=== PATIENT | female | born 1960 | race Caucasian/White ===

== ENCOUNTER 2017-07-24 06:48 | Emergency (ER) | payer OTHER, SELFPAY ==
[2017-07-24 08:00] LABS: #Eosinphils 0.1 thou/uL (0.0-0.7); #Lymphocytes 2.5 thou/uL (1.20-3.40); #Monocytes 0.5 thou/uL (0.11-0.59); #Neutrophils 2.6 thou/uL (1.40-6.50); %Basophils 0.6 % (0.0-1.0); %Eosinophils 1.2 % (0.0-10.0); %Lymphocytes 43.8 % (21.0-51.0); %Monocytes 8.7 % (0.0-10.0); Hematocrit 39.3 % (36.0-47.0); Mean Platelet Volume 7.8 fL (7.4-10.4); Red Blood Cell (RBC) Count 4.22 mill/uL (4.20-5.40); White Blood Cell (WBC) Count 5.7 thou/uL (4.8-10.8)
--- NOTE | 2017-07-24 08:00 | RAD ---
1 VIEW CHEST: Date: 07/24/17 COMPARISON: 05/20/16. HISTORY: Chest pain. FINDINGS: Normal cardiac silhouette. Pulmonary vessels and hilum are normal. Costophrenic angles are clear. No masses or consolidation. No pneumothorax or osseous abnormalities. IMPRESSION: No acute cardiopulmonary process. POS: [facility]
[2017-07-24 08:08] LABS: Prothrombin Time 13.3 SEC (12.0-14.7)
[2017-07-24 08:23] LABS: ALT (SGPT) 24 U/L (8-55); AST (SGOT) 17 U/L (5-34); Alkaline Phosphatase 78 U/L (40-150); Anion Gap 14 mmol/L (10-20); BUN (Urea Nitrogen) 12 mg/dL (9.8-20.1); Bilirubin, Total 0.3 mg/dL (0.2-1.2); Calc. Creatinine Clearance 0 mL/min (70-130); Calcium 9.3 mg/dL (7.8-10.44); Carbon Dioxide 22 mmol/L (22-29); Chloride 109 mmol/L (98-107); Estimated GFR-MDRD 73; Globulin 3.1 g/dL (2.4-3.5); Lipase 13 U/L (8-78); Magnesium 2.6 mg/dL (1.6-2.6); Protein, Total 7.3 g/dL (6.0-8.3)
[2017-07-24 08:26] LABS: Troponin I Less than 0.010 ng/mL (< 0.028)
[2017-07-24 09:39] LABS: Bilirubin Negative (Negative); Blood, Urine Negative (Negative); Glucose, Urine (Dipstick) Negative (Negative); Ketone, Urine Negative (Negative); Nitrite Negative (Negative); Protein, Urine (Dipstick) Negative (Neg-Trace)
[2017-07-24 09:40] LABS: Bacteria/HPF None Seen HPF (None Seen); Hyaline Casts/LPF 0-3 HYALINE CAST LPF (0-3 Hyaline); RBC/HPF 0-3 HPF (0-3); Squamous Epithelial 0-3 HPF (0-3)
[2017-07-24] MEDS ORDERED: Ketorolac Tromethamine 30 MG/ML VIAL ONE (10:09)
[2017-07-24] MEDS ORDERED: Ondansetron HCl/PF 4 MG/2 ML Vial ONE (10:09)
== END 2017-07-24 10:18 | disposition home or self-care (01) ==
LOC: ERS 06:48
DX: N39.0 Urinary tract infection, site not specified (principal); G43.909 Migraine, unspecified, not intractable, without status migrainosus; F41.9 Anxiety disorder, unspecified; F32.9 Major depressive disorder, single episode, unspecified
CPT/HCPCS: 71010; 80053; 81003; 81015; 82553; 83690; 83735; 84484; 85025; 85379; 85610; 93005; 96361; 96374; 96375; J1885; J2405

== ENCOUNTER 2017-10-06 21:08 | Emergency (ER) | payer SELFPAY ==
[2017-10-06 22:27] LABS: #Basophils 0.1 thou/uL (0.0-0.2); #Eosinphils 0.1 thou/uL (0.0-0.7); #Lymphocytes 2.2 thou/uL (1.20-3.40); #Monocytes 0.3 thou/uL (0.11-0.59); #Neutrophils 2.9 thou/uL (1.40-6.50); %Basophils 0.9 % (0.0-1.0); %Eosinophils 1.5 % (0.0-10.0); %Lymphocytes 39.7 % (21.0-51.0); %Monocytes 6.2 % (0.0-10.0); %Neutrophils 51.8 % (42.0-75.0); Hemoglobin 11.7 g/dL (12.0-16.0); Mean Corpuscular HGB CONC 34.5 g/dL (32.0-36.0); Mean Corpuscular Hemoglobin 32.5 pg (27.0-31.0); Mean Corpuscular Volume 94.3 fl (81.0-99.0); Mean Platelet Volume 8.6 fL (7.4-10.4); Platelet Count 168 thou/uL (130-400); RBC Distribution Width 11.6 % (11.5-14.5); Red Blood Cell (RBC) Count 3.59 mill/uL (4.20-5.40); White Blood Cell (WBC) Count 5.5 thou/uL (4.8-10.8)
[2017-10-06 22:49] LABS: ALT (SGPT) 13 U/L (8-55); AST (SGOT) 22 U/L (5-34); Albumin 3.9 g/dL (3.5-5.0); Alcohol Less than 10 mg/dL (Less than 10); Alkaline Phosphatase 66 U/L (40-150); Anion Gap 12 mmol/L (10-20); BUN (Urea Nitrogen) 13 mg/dL (9.8-20.1); Bilirubin, Total 0.3 mg/dL (0.2-1.2); CK (CPK) 414 U/L (29-168); Calc. Creatinine Clearance 0 mL/min (70-130); Calcium 10.1 mg/dL (7.8-10.44); Carbon Dioxide 23 mmol/L (22-29); Chloride 107 mmol/L (98-107); Estimated GFR-MDRD 62; Globulin 2.5 g/dL (2.4-3.5); Glucose 77 mg/dL (70-105); Potassium 4.2 mmol/L (3.5-5.1); Protein, Total 6.4 g/dL (6.0-8.3); Sodium 138 mmol/L (136-145)
[2017-10-06 23:13] LABS: Bilirubin Negative (Negative); Blood, Urine Negative (Negative); Clarity CLEAR (Clear); Glucose, Urine (Dipstick) Negative (Negative); Leukocyte Negative (Negative); Nitrite Negative (Negative); Protein, Urine (Dipstick) Negative (Neg-Trace); Specific Gravity, Urine 1.013 (1.002-1.036); Urobilinogen 0.2 mg/dL (0.2-1.0)
[2017-10-06 23:22] LABS: Amphetamine Not Detected (NotDetected); Cocaine Metabolite Screen Not Detected (NotDetected); Medtox Reader # READER 4; Methamphetamine Not Detected (NotDetected); Opiate Screen Not Detected (NotDetected); Phencyclidine (PCP) Not Detected (NotDetected); THC/Cannabinoid Screen Not Detected (NotDetected)
[2017-10-06 23:23] LABS: Barbiturates Screen Not Detected (NotDetected); Benzodiazepine Screen Detected (NotDetected); Medtox Control Line Valid? VALID (VALID); Methadone Not Detected (NotDetected); Oxycodone Screen Not Detected (NotDetected); Tricyclic Screen Not Detected (NotDetected)
[2017-10-07] MEDS ORDERED: Topiramate 25 MG TAB PO SCH ×2 (00:01→21:00)
[2017-10-07] MEDS ORDERED: Divalproex Sodium 250 MG (DR) TAB PO SCH ×2 (00:01→06:00)
[2017-10-07] MEDS ORDERED: Ketorolac Tromethamine 60 MG/2 ML VIAL ONE (00:51)
== END 2017-10-07 01:39 | disposition home or self-care (01) ==
LOC: ERS 21:08
DX: R45.1 Restlessness and agitation (principal); R51 Headache; F41.9 Anxiety disorder, unspecified; F31.9 Bipolar disorder, unspecified; Z79.899 Other long term (current) drug therapy
CPT/HCPCS: 36415; 80053; 80164; 80306; 80307; 81003; 82550; 84443; 85025; 96372; J1885

== ENCOUNTER 2017-11-12 01:39 | Emergency (ER) | payer SELFPAY ==
[2017-11-12 05:49] LABS: #Basophils 0.1 thou/uL (0.0-0.2); #Eosinphils 0.1 thou/uL (0.0-0.7); #Lymphocytes 2.7 thou/uL (1.20-3.40); #Monocytes 0.4 thou/uL (0.11-0.59); #Neutrophils 3.4 thou/uL (1.40-6.50); %Basophils 1.2 % (0.0-1.0); %Eosinophils 1.3 % (0.0-10.0); %Lymphocytes 40.1 % (21.0-51.0); %Monocytes 6.2 % (0.0-10.0); %Neutrophils 51.2 % (42.0-75.0); Mean Corpuscular HGB CONC 34.3 g/dL (32.0-36.0); Mean Corpuscular Hemoglobin 31.9 pg (27.0-31.0); Mean Corpuscular Volume 93.1 fl (81.0-99.0); Mean Platelet Volume 8.2 fL (7.4-10.4); Platelet Count 253 thou/uL (130-400); RBC Distribution Width 11.8 % (11.5-14.5); Red Blood Cell (RBC) Count 4.39 mill/uL (4.20-5.40); White Blood Cell (WBC) Count 6.7 thou/uL (4.8-10.8)
[2017-11-12 06:12] LABS: ALT (SGPT) 17 U/L (8-55); AST (SGOT) 17 U/L (5-34); Albumin 4.7 g/dL (3.5-5.0); Alkaline Phosphatase 92 U/L (40-150); Anion Gap 12 mmol/L (10-20); BUN (Urea Nitrogen) 14 mg/dL (9.8-20.1); Bilirubin, Total 0.3 mg/dL (0.2-1.2); CK (CPK) 60 U/L (29-168); Calc. Creatinine Clearance 0 mL/min (70-130); Calcium 9.8 mg/dL (7.8-10.44); Carbon Dioxide 24 mmol/L (22-29); Chloride 104 mmol/L (98-107); Estimated GFR-MDRD 66; Globulin 3.2 g/dL (2.4-3.5); Glucose 88 mg/dL (70-105); Potassium 3.5 mmol/L (3.5-5.1); Protein, Total 7.9 g/dL (6.0-8.3); Sodium 136 mmol/L (136-145)
[2017-11-12] MEDS ORDERED: Diazepam 5 MG TAB ONE (07:47)
== END 2017-11-12 08:10 | disposition home or self-care (01) ==
LOC: ERS 01:39
DX: R20.2 Paresthesia of skin (principal); G43.909 Migraine, unspecified, not intractable, without status migrainosus; F41.9 Anxiety disorder, unspecified; F31.9 Bipolar disorder, unspecified; F60.3 Borderline personality disorder; Z79.899 Other long term (current) drug therapy
CPT/HCPCS: 36415; 80053; 82550; 85025; 99284

== ENCOUNTER 2017-11-21 19:41 | Emergency (ER) | payer SELFPAY ==
[2017-11-21 20:21] LABS: #Lymphocytes 1.9 thou/uL (1.20-3.40); #Monocytes 0.6 thou/uL (0.11-0.59); #Neutrophils 3.9 thou/uL (1.40-6.50); %Basophils 0.7 % (0.0-1.0); %Eosinophils 0.7 % (0.0-10.0); %Lymphocytes 29.1 % (21.0-51.0); %Monocytes 9.5 % (0.0-10.0); Hemoglobin 14.4 g/dL (12.0-16.0); Mean Corpuscular HGB CONC 33.6 g/dL (32.0-36.0); Mean Corpuscular Hemoglobin 31.3 pg (27.0-31.0); Mean Corpuscular Volume 93.1 fl (81.0-99.0); Mean Platelet Volume 8.3 fL (7.4-10.4); Platelet Count 241 thou/uL (130-400); RBC Distribution Width 11.5 % (11.5-14.5); White Blood Cell (WBC) Count 6.6 thou/uL (4.8-10.8)
[2017-11-21 20:25] LABS: Bilirubin Moderate (Negative); Blood, Urine Negative (Negative); Glucose, Urine (Dipstick) Negative (Negative); Leukocyte Negative (Negative); Nitrite Negative (Negative); Protein, Urine (Dipstick) 100 mg/dL (Neg-Trace); Urobilinogen 0.2 mg/dL (0.2-1.0)
[2017-11-21 20:27] LABS: Clarity Clear (Clear); Specific Gravity, Urine 1.027 (1.002-1.036)
[2017-11-21 20:28] LABS: Other Microscopic Description Less than 2 mL rec'd
[2017-11-21 20:29] LABS: Bacteria/HPF None Seen HPF (None Seen); RBC/HPF 0-3 HPF (0-3); Squamous Epithelial 0-3 HPF (0-3); WBC/HPF 0-3 HPF (0-3)
[2017-11-21 20:30] LABS: Hyaline Casts/LPF NONE SEEN LPF (0-3 Hyaline)
[2017-11-21 20:39] LABS: Amphetamine Not Detected (NotDetected); Barbiturates Screen Not Detected (NotDetected); Benzodiazepine Screen Detected (NotDetected); Cocaine Metabolite Screen Not Detected (NotDetected); Medtox Control Line Valid? VALID (VALID); Medtox Reader # READER 4; Methadone Not Detected (NotDetected); Methamphetamine Detected (NotDetected); Opiate Screen Not Detected (NotDetected); Oxycodone Screen Not Detected (NotDetected); Phencyclidine (PCP) Not Detected (NotDetected); THC/Cannabinoid Screen Not Detected (NotDetected); Tricyclic Screen Detected (NotDetected)
[2017-11-21 20:44] LABS: ALT (SGPT) 26 U/L (8-55); AST (SGOT) 21 U/L (5-34); Acetaminophen Less than 6.0 mcg/mL (10.0-30.0); Albumin 4.6 g/dL (3.5-5.0); Alcohol Less than 10 mg/dL (Less than 10); Alkaline Phosphatase 83 U/L (40-150); Anion Gap 14 mmol/L (10-20); BUN (Urea Nitrogen) 11 mg/dL (9.8-20.1); Bilirubin, Total 0.3 mg/dL (0.2-1.2); Calc. Creatinine Clearance 0 mL/min (70-130); Calcium 9.7 mg/dL (7.8-10.44); Carbon Dioxide 17 mmol/L (22-29); Chloride 113 mmol/L (98-107); Estimated GFR-MDRD 72; Potassium 3.2 mmol/L (3.5-5.1); Protein, Total 7.6 g/dL (6.0-8.3); Salicylate Less than 8.0 mg/dL (15.0-30.0); Sodium 141 mmol/L (136-145)
[2017-11-21 20:47] LABS: Glucose 56 mg/dL (70-105)
[2017-11-21] MEDS ORDERED: Ondansetron HCl/PF 4 MG/2 ML Vial ONE (21:51)
[2017-11-21] MEDS ORDERED: Lorazepam 2 MG/ML VIAL ONE (22:14)
[2017-11-22] MEDS ORDERED: Topiramate 25 MG TAB PO SCH ×2 (02:00→07:45)
[2017-11-22] MEDS ORDERED: Divalproex Sodium 250 MG (DR) TAB PO SCH (02:00)
== END 2017-11-22 09:44 ==
LOC: ERS 19:41
DX: R45.851 Suicidal ideations (principal); F32.9 Major depressive disorder, single episode, unspecified; E16.2 Hypoglycemia, unspecified; G43.909 Migraine, unspecified, not intractable, without status migrainosus; F41.9 Anxiety disorder, unspecified; F43.10 Post-traumatic stress disorder, unspecified; Z79.899 Other long term (current) drug therapy
CPT/HCPCS: 36415; 36416; 80053; 80306; 80307; 81003; 81015; 82550; 84439; 84443; 85025; 96361; 96374; 96375; J2060; J2405

== ENCOUNTER 2017-12-23 16:40 | Emergency (ER) | payer SELFPAY ==
[2017-12-23 17:25] LABS: #Eosinphils 0.1 thou/uL (0.0-0.7); #Lymphocytes 1.8 thou/uL (1.20-3.40); #Monocytes 0.3 thou/uL (0.11-0.59); #Neutrophils 2.4 thou/uL (1.40-6.50); %Eosinophils 1.3 % (0.0-10.0); %Lymphocytes 38.7 % (21.0-51.0); %Monocytes 5.7 % (0.0-10.0); %Neutrophils 53.4 % (42.0-75.0); Hemoglobin 12.8 g/dL (12.0-16.0); Mean Corpuscular HGB CONC 34.1 g/dL (32.0-36.0); Mean Corpuscular Hemoglobin 31.4 pg (27.0-31.0); Mean Corpuscular Volume 92.1 fl (81.0-99.0); Mean Platelet Volume 7.4 fL (7.4-10.4); Platelet Count 237 thou/uL (130-400); RBC Distribution Width 11.3 % (11.5-14.5); Red Blood Cell (RBC) Count 4.08 mill/uL (4.20-5.40); White Blood Cell (WBC) Count 4.5 thou/uL (4.8-10.8)
[2017-12-23] MEDS ORDERED: Ibuprofen 200 MG TAB ONE (17:47)
[2017-12-23 17:48] LABS: Acetaminophen Less than 6.0 mcg/mL (10.0-30.0); Alcohol Less than 10 mg/dL (Less than 10); Salicylate Less than 8.0 mg/dL (15.0-30.0)
[2017-12-23 17:49] LABS: ALT (SGPT) 21 U/L (8-55); AST (SGOT) 19 U/L (5-34); Albumin 4.1 g/dL (3.5-5.0); Alcohol Less than 10 mg/dL (Less than 10); Alkaline Phosphatase 87 U/L (40-150); Anion Gap 10 mmol/L (10-20); BUN (Urea Nitrogen) 11 mg/dL (9.8-20.1); Bilirubin, Total 0.2 mg/dL (0.2-1.2); CK (CPK) 50 U/L (29-168); Calc. Creatinine Clearance 0 mL/min (70-130); Calcium 9.5 mg/dL (7.8-10.44); Carbon Dioxide 21 mmol/L (22-29); Chloride 109 mmol/L (98-107); Estimated GFR-MDRD 72; Globulin 2.7 g/dL (2.4-3.5); Glucose 153 mg/dL (70-105); Potassium 3.6 mmol/L (3.5-5.1); Protein, Total 6.8 g/dL (6.0-8.3); Sodium 136 mmol/L (136-145)
[2017-12-23 17:50] LABS: Bilirubin Negative (Negative); Blood, Urine Negative (Negative); Clarity CLEAR (Clear); Glucose, Urine (Dipstick) Negative (Negative); Leukocyte Small (Negative); Nitrite Negative (Negative); Protein, Urine (Dipstick) Negative (Neg-Trace); Specific Gravity, Urine 1.013 (1.002-1.036); Urobilinogen 0.2 mg/dL (0.2-1.0); pH, Urine 7.5 (5.0-9.0)
[2017-12-23 17:53] LABS: Bacteria/HPF None Seen HPF (None Seen); Hyaline Casts/LPF 0-3 HYALINE CAST LPF (0-3 Hyaline); Pathc Cast-AUWi Flag 0.43 (0-2.49); RBC/HPF None Seen HPF (0-3); Squamous Epithelial None Seen HPF (0-3); WBC/HPF 0-3 HPF (0-3)
[2017-12-23 19:07] LABS: Amphetamine Not Detected (NotDetected); Barbiturates Screen Not Detected (NotDetected); Benzodiazepine Screen Detected (NotDetected); Cocaine Metabolite Screen Not Detected (NotDetected); Medtox Control Line Valid? VALID (VALID); Medtox Reader # READER 4; Methadone Not Detected (NotDetected); Methamphetamine Not Detected (NotDetected); Opiate Screen Not Detected (NotDetected); Oxycodone Screen Not Detected (NotDetected); Phencyclidine (PCP) Not Detected (NotDetected); THC/Cannabinoid Screen Not Detected (NotDetected); Tricyclic Screen Not Detected (NotDetected)
[2017-12-23] MEDS ORDERED: Lorazepam 1 MG TAB ONE ×2 (19:15→19:31)
[2017-12-23] MEDS ORDERED: Acetaminophen 500 MG TAB ONE (19:47)
== END 2017-12-24 01:12 ==
LOC: ERS 16:40
DX: R45.851 Suicidal ideations (principal); G43.909 Migraine, unspecified, not intractable, without status migrainosus; D64.9 Anemia, unspecified; F31.9 Bipolar disorder, unspecified; F41.9 Anxiety disorder, unspecified; Z79.899 Other long term (current) drug therapy
CPT/HCPCS: 36415; 80053; 80306; 80307; 81003; 81015; 82550; 84443; 85025; 99285

== ENCOUNTER 2018-02-06 17:02 | Emergency (ER) | payer SELFPAY ==
[2018-02-06 17:56] LABS: #Eosinphils 0.1 thou/uL (0.0-0.7); #Lymphocytes 2.2 thou/uL (1.20-3.40); #Monocytes 0.4 thou/uL (0.11-0.59); #Neutrophils 3.5 thou/uL (1.40-6.50); %Basophils 0.2 % (0.0-1.0); %Eosinophils 1.5 % (0.0-10.0); %Lymphocytes 34.8 % (21.0-51.0); %Monocytes 7.1 % (0.0-10.0); %Neutrophils 56.4 % (42.0-75.0); Hemoglobin 12.7 g/dL (12.0-16.0); Mean Corpuscular HGB CONC 35.1 g/dL (32.0-36.0); Mean Corpuscular Volume 91.1 fl (81.0-99.0); Platelet Count 208 thou/uL (130-400); RBC Distribution Width 11.2 % (11.5-14.5); Red Blood Cell (RBC) Count 3.97 mill/uL (4.20-5.40); White Blood Cell (WBC) Count 6.2 thou/uL (4.8-10.8)
[2018-02-06 18:20] LABS: ALT (SGPT) 68 U/L (8-55); AST (SGOT) 170 U/L (5-34); Albumin 4.1 g/dL (3.5-5.0); Alkaline Phosphatase 93 U/L (40-150); Anion Gap 12 mmol/L (10-20); BUN (Urea Nitrogen) 22 mg/dL (9.8-20.1); Bilirubin, Total 0.3 mg/dL (0.2-1.2); CK (CPK) 40 U/L (29-168); Calc. Creatinine Clearance 0 mL/min (70-130); Carbon Dioxide 24 mmol/L (22-29); Chloride 106 mmol/L (98-107); Estimated GFR-MDRD 61; Globulin 2.9 g/dL (2.4-3.5); Glucose 91 mg/dL (70-105); Potassium 3.6 mmol/L (3.5-5.1); Sodium 138 mmol/L (136-145)
--- NOTE | 2018-02-06 18:20 | RAD ---
CHEST ONE VIEW: HISTORY: Chest pain. COMPARISON: Chest radiograph from 07/24/2017. FINDINGS: The lungs are slightly hypoinflated. No pneumothorax or effusion. The cardiac silhouette and medias tinal contour are similar. Bone island of the right humeral head. IMPRESSION: No acute osseous abnormality. POS: [facility]
[2018-02-06 18:22] LABS: CKMB 0.6 ng/mL (0-6.6); Troponin I Less than 0.010 ng/mL (< 0.028)
[2018-02-06] MEDS ORDERED: Lidocaine Viscous Sol 2% 15 ml UD Cup ONE (20:13)
[2018-02-06] MEDS ORDERED: Pantoprazole 40 MG VIAL ONE (20:13)
[2018-02-06] MEDS ORDERED: Mag-Al 1200 mg/1200 mg/30 ML UDCUP ONE (20:13)
[2018-02-06 21:03] LABS: Bilirubin Negative (Negative); Blood, Urine Negative (Negative); Clarity CLEAR (Clear); Glucose, Urine (Dipstick) Negative (Negative); Leukocyte Small (Negative); Nitrite Negative (Negative); Protein, Urine (Dipstick) Negative (Neg-Trace); Specific Gravity, Urine 1.021 (1.002-1.036)
[2018-02-06 21:06] LABS: Bacteria/HPF None Seen HPF (None Seen); Hyaline Casts/LPF 0-3 HYALINE CAST LPF (0-3 Hyaline); RBC/HPF 0-3 HPF (0-3); Squamous Epithelial None Seen HPF (0-3); WBC/HPF 0-3 HPF (0-3)
[2018-02-06 21:51] LABS: Troponin I Less than 0.010 ng/mL (< 0.028)
== END 2018-02-06 22:34 | disposition home or self-care (01) ==
LOC: ERS 17:02
DX: R07.89 Other chest pain (principal); G43.909 Migraine, unspecified, not intractable, without status migrainosus; F41.9 Anxiety disorder, unspecified; F31.9 Bipolar disorder, unspecified; F43.10 Post-traumatic stress disorder, unspecified; F60.3 Borderline personality disorder; Z79.899 Other long term (current) drug therapy
CPT/HCPCS: 36415; 71045; 80053; 81003; 81015; 82550; 82553; 84484; 85025; 93005; 94760; 96361; 96374; C9113

== ENCOUNTER 2018-03-06 19:43 | Emergency (ER) | payer OTHER, SELFPAY ==
[2018-03-06 21:14] LABS: Hemoglobin 13.5 g/dL (12.0-16.0); Mean Corpuscular HGB CONC 34.1 g/dL (32.0-36.0); Mean Corpuscular Volume 90.8 fl (81.0-99.0); Mean Platelet Volume 8.2 fL (7.4-10.4); Platelet Count 199 thou/uL (130-400); RBC Distribution Width 11.7 % (11.5-14.5); Red Blood Cell (RBC) Count 4.37 mill/uL (4.20-5.40); White Blood Cell (WBC) Count 4.8 thou/uL (4.8-10.8)
[2018-03-06 21:27] LABS: Band 1 % (5-11); Eosinophils 1 % (0-10); Lymphocytes 44 % (21-51); MDiff Complete? YES; Monocytes 5 % (0-10); Neutrophil 44 % (42-75); PLT Morphology Comment Appears Adequate; RBC Morphology Normal; Reactive Lymphocytes 4 % (0-10)
[2018-03-06 21:30] LABS: ALT (SGPT) 31 U/L (8-55); AST (SGOT) 17 U/L (5-34); Albumin 4.3 g/dL (3.5-5.0); Alkaline Phosphatase 95 U/L (40-150); Anion Gap 13 mmol/L (10-20); BUN (Urea Nitrogen) 15 mg/dL (9.8-20.1); Bilirubin, Total 0.3 mg/dL (0.2-1.2); CK (CPK) 80 U/L (29-168); Calc. Creatinine Clearance 0 mL/min (70-130); Calcium 9.6 mg/dL (7.8-10.44); Carbon Dioxide 19 mmol/L (22-29); Chloride 109 mmol/L (98-107); Estimated GFR-MDRD 60; Glucose 72 mg/dL (70-105); Potassium 3.8 mmol/L (3.5-5.1); Protein, Total 7.3 g/dL (6.0-8.3); Sodium 137 mmol/L (136-145)
[2018-03-06 21:34] LABS: Acetaminophen Less than 6.0 mcg/mL (10.0-30.0); Alcohol Less than 10 mg/dL (Less than 10); Salicylate Less than 8.0 mg/dL (15.0-30.0)
[2018-03-06 21:45] LABS: Bilirubin Negative (Negative); Blood, Urine Negative (Negative); Clarity CLEAR (Clear); Glucose, Urine (Dipstick) Negative (Negative); Leukocyte Small (Negative); Nitrite Negative (Negative); Protein, Urine (Dipstick) Negative (Neg-Trace); Specific Gravity, Urine 1.014 (1.002-1.036); Urobilinogen 0.2 mg/dL (0.2-1.0); pH, Urine 6.5 (5.0-9.0)
[2018-03-06 21:47] LABS: Bacteria/HPF None Seen HPF (None Seen); Hyaline Casts/LPF 0-3 HYALINE CAST LPF (0-3 Hyaline); RBC/HPF 0-3 HPF (0-3); Squamous Epithelial 0-3 HPF (0-3); WBC/HPF 0-3 HPF (0-3)
[2018-03-06 21:55] LABS: Amphetamine Not Detected (NotDetected); Barbiturates Screen Not Detected (NotDetected); Benzodiazepine Screen Detected (NotDetected); Cocaine Metabolite Screen Not Detected (NotDetected); Medtox Control Line Valid? VALID (VALID); Medtox Reader # READER 1; Methadone Not Detected (NotDetected); Methamphetamine Not Detected (NotDetected); Opiate Screen Not Detected (NotDetected); Oxycodone Screen Not Detected (NotDetected); Phencyclidine (PCP) Not Detected (NotDetected); THC/Cannabinoid Screen Not Detected (NotDetected); Tricyclic Screen Not Detected (NotDetected)
[2018-03-06 22:38] LABS: Free T4 (Free Thyroxine) 0.82 ng/dL (0.70-1.48)
[2018-03-07] MEDS ORDERED: Divalproex Sodium 250 MG (DR) TAB PO SCH (09:00)
[2018-03-07] MEDS ORDERED: Topiramate 25 MG TAB PO SCH (21:00)
== END 2018-03-07 11:57 ==
LOC: ERS 19:43
DX: T42.4X2A Poisoning by benzodiazepines, intentional self-harm, initial encounter (principal); G43.909 Migraine, unspecified, not intractable, without status migrainosus; D64.9 Anemia, unspecified; F31.9 Bipolar disorder, unspecified; F41.9 Anxiety disorder, unspecified; Z79.899 Other long term (current) drug therapy
CPT/HCPCS: 80053; 80306; 80307; 81003; 81015; 82550; 84439; 84443; 84481; 85025; 93005; 96360

== ENCOUNTER 2018-03-24 08:07 | Emergency (ER) | payer OTHER ==
--- NOTE | 2018-03-24 09:39 | RAD ---
PORTABLE CHEST: Date: 03/24/18 INDICATION: Chest pain. COMPARISON: 02/06/18. FINDINGS: The lungs are clear. No infiltrates seen. No evidence of vascular congestion. Heart and mediastinum u nremarkable. IMPRESSION: No acute abnormality. POS: [facility]
[2018-03-24 10:01] LABS: Bilirubin Negative (Negative); Blood, Urine Negative (Negative); Clarity CLEAR (Clear); Glucose, Urine (Dipstick) Negative (Negative); Leukocyte Trace (Negative); Nitrite Negative (Negative); Protein, Urine (Dipstick) Negative (Neg-Trace); Specific Gravity, Urine 1.022 (1.002-1.036); Urobilinogen 0.2 mg/dL (0.2-1.0); pH, Urine 6.5 (5.0-9.0)
[2018-03-24 10:03] LABS: Bacteria/HPF None Seen HPF (None Seen); Hyaline Casts/LPF 0-3 HYALINE CAST LPF (0-3 Hyaline); Pathc Cast-AUWi Flag 0.29 (0-2.49); RBC/HPF 0-3 HPF (0-3); Squamous Epithelial 0-3 HPF (0-3)
[2018-03-24 10:08] LABS: #Eosinphils 0.2 thou/uL (0.0-0.7); #Lymphocytes 1.6 thou/uL (1.20-3.40); #Monocytes 0.4 thou/uL (0.11-0.59); %Basophils 0.7 % (0.0-1.0); %Eosinophils 4.6 % (0.0-10.0); %Lymphocytes 30.3 % (21.0-51.0); %Monocytes 7.7 % (0.0-10.0); %Neutrophils 56.7 % (42.0-75.0); Mean Corpuscular HGB CONC 32.8 g/dL (32.0-36.0); Mean Corpuscular Hemoglobin 30.7 pg (27.0-31.0); Mean Corpuscular Volume 93.7 fL (78.0-98.0); Mean Platelet Volume 8.9 fL (7.4-10.4); Platelet Count 188 thou/uL (130-400); RBC Distribution Width 11.8 % (11.5-14.5); Red Blood Cell (RBC) Count 4.22 mill/uL (4.20-5.40); White Blood Cell (WBC) Count 5.3 thou/uL (4.8-10.8)
[2018-03-24 10:20] LABS: Amphetamine Not Detected (NotDetected); Barbiturates Screen Not Detected (NotDetected); Benzodiazepine Screen Detected (NotDetected); Cocaine Metabolite Screen Not Detected (NotDetected); Medtox Control Line Valid? VALID (VALID); Medtox Reader # READER 1; Methadone Not Detected (NotDetected); Methamphetamine Not Detected (NotDetected); Opiate Screen Detected (NotDetected); Oxycodone Screen Not Detected (NotDetected); Phencyclidine (PCP) Not Detected (NotDetected); THC/Cannabinoid Screen Not Detected (NotDetected); Tricyclic Screen Not Detected (NotDetected)
[2018-03-24 10:24] LABS: Acetaminophen Less than 6.0 mcg/mL (10.0-30.0); Alcohol Less than 10 mg/dL (Less than 10); CK (CPK) 1433 U/L (29-168); Salicylate Less than 8.0 mg/dL (15.0-30.0)
[2018-03-24 10:26] LABS: ALT (SGPT) 90 U/L (8-55); AST (SGOT) 67 U/L (5-34); Albumin 4.1 g/dL (3.5-5.0); Alcohol Less than 10 mg/dL (Less than 10); Alkaline Phosphatase 107 U/L (40-150); Anion Gap 13 mmol/L (10-20); BUN (Urea Nitrogen) 19 mg/dL (9.8-20.1); Bilirubin, Total 0.3 mg/dL (0.2-1.2); Calc. Creatinine Clearance 0 mL/min (70-130); Calcium 9.3 mg/dL (7.8-10.44); Carbon Dioxide 21 mmol/L (22-29); Chloride 109 mmol/L (98-107); Estimated GFR-MDRD 70; Globulin 2.6 g/dL (2.4-3.5); Glucose 90 mg/dL (70-105); Potassium 4.1 mmol/L (3.5-5.1); Protein, Total 6.7 g/dL (6.0-8.3); Sodium 139 mmol/L (136-145)
--- NOTE | 2018-03-25 14:24 | EKG ---
Test Reason : DIZZINESS Blood Pressure : / mmHG Vent. Rate : 084 BPM Atrial Rate : 084 BPM P-R Int : 170 ms QRS Dur : 078 ms QT Int : 368 ms P-R-T Axes : 023 -01 022 degrees QTc Int : 434 ms Normal sinus rhythm Normal ECG Confirmed by MCKENZIE MENDOSA, HARINDER ([id number]), editor continuity and script BERKLEY CUNHA ([id number]) on 03/25/2018 2:24:46 PM Referred By: MECCA RINCON Confirmed By:HARINDER RINCON MD
== END 2018-03-24 11:51 | disposition home or self-care (01) ==
LOC: ERS 08:07
DX: R55 Syncope and collapse (principal); M79.1 Myalgia; G43.909 Migraine, unspecified, not intractable, without status migrainosus; D64.9 Anemia, unspecified; F41.9 Anxiety disorder, unspecified; F31.9 Bipolar disorder, unspecified; F60.3 Borderline personality disorder; Z79.899 Other long term (current) drug therapy
CPT/HCPCS: 36415; 71045; 80053; 80164; 80306; 80307; 81003; 81015; 82550; 84443; 85025; 93005; 94760

== ENCOUNTER 2018-03-24 15:49 | Observation (INO) | payer OTHER ==
[2018-03-24 17:27] LABS: Hemoglobin 13.5 g/dL (12.0-16.0); Mean Corpuscular HGB CONC 34.1 g/dL (32.0-36.0); Mean Corpuscular Hemoglobin 31.1 pg (27.0-31.0); Mean Corpuscular Volume 91.2 fL (78.0-98.0); Mean Platelet Volume 8.8 fL (7.4-10.4); RBC Distribution Width 11.8 % (11.5-14.5); Red Blood Cell (RBC) Count 4.34 mill/uL (4.20-5.40); White Blood Cell (WBC) Count 6.2 thou/uL (4.8-10.8)
[2018-03-24 17:44] LABS: Anion Gap 13 mmol/L (10-20); BUN (Urea Nitrogen) 17 mg/dL (9.8-20.1); Calc. Creatinine Clearance 0 mL/min (70-130); Calcium 9.3 mg/dL (7.8-10.44); Carbon Dioxide 21 mmol/L (22-29); Chloride 107 mmol/L (98-107); Estimated GFR-MDRD 67; Glucose 90 mg/dL (70-105); Sodium 137 mmol/L (136-145)
[2018-03-24 17:50] LABS: Eosinophils 3 % (0-10); Large Platelets SLIGHT; Lymphocytes 32 % (21-51); MDiff Complete? YES; Monocytes 6 % (0-10); Neutrophil 50 % (42-75); PLT Morphology Comment PLT clumps seen-ADEQ; Platelet Clumps SLIGHT; RBC Morphology Normal; Reactive Lymphocytes 9 % (0-10)
--- NOTE | 2018-03-24 17:50 | RAD ---
ONE VIEW CHEST: 03/24/18 HISTORY: Chest pain. COMPARISON: 03/24/18. FINDINGS: Normal cardiac silhouette. The pulmonary vessels and hilum are normal. Costophrenic angles are clear. The lung volumes are slightly diminished due to poor inspiratory effort. Increased interstitial opac ities in the lung bases may represent atelectasis. Infiltrate cannot be excluded. No pneumothorax. IMPRESSION: Increased interstitial opacities in the lung bases likely represent atelectasis. Superimposed infiltr ate cannot be excluded. POS: [facility]
[2018-03-24 17:55] LABS: Troponin I Less than 0.010 ng/mL (< 0.028)
[2018-03-24 18:02] LABS: CKMB 55.2 ng/mL (0-6.6)
[2018-03-24 21:07] LABS: Troponin I Less than 0.010 ng/mL (< 0.028)
--- NOTE | 2018-03-24 21:21 | PDOC.FPRHP ---
- History of Present Illness Chief Complaint: CP History of Present Illness: Resident: Shea Dickson DO PCP: Kirit Martin MD Patient is a 58yo F with PMH of bipolar DO, MDD with hx of suicide attempts, and hx of opiod addiction presents to ED with CP. Initially went to ED for dizziness, was discharged home but returned hours later with CP. Per ED, CP was described as atypical CP, but I am unable to assess this myself because upon evaluation of patient, she is AOx0, not following commands, hard to arouse. Actually the lab is drawing blood on her and she did not awaken upon needle insertion. When she is awake, she makes incoherent speech. Per nursing staff this is a change from when she arrived to the floor. ED Course: In the ED she was given IVF for a lab finding of CK 3,300. - Allergies/Adverse Reactions Allergies Allergy/AdvReac Type Severity Reaction Status Date / Time doxycycline Allergy Intermediate Rash Verified 05/22/17 00:14 clindamycin Allergy Verified 03/24/18 21:51 prochlorperazine edisylate Allergy Verified 05/22/17 00:14 [From Compazine] prochlorperazine maleate Allergy Verified 05/22/17 00:14 [From Compazine] zolpidem tartrate Allergy Verified 05/22/17 00:14 [From Ambien] - Home Medications Medication Instructions Recorded Confirmed Type Aspirin [Aspirin Chewable Tablet] 81 mg PO DAILY #30 tab 05/23/17 Rx Gabapentin [Neurontin] 100 mg PO BID #88 cap 05/23/17 Rx Ibuprofen [Motrin] 400 mg PO Q6HR PRN #30 tab 05/23/17 Rx DULoxetine [Cymbalta] 120 mg PO HS 03/24/18 03/24/18 History Divalproex Sodium ER [Depakote ER] 250 mg PO TID 03/24/18 03/24/18 History Fluticasone Propionate [Flonase 1 spray EA NARE BID 03/24/18 03/24/18 History Nasal [place]] OLANZapine [ZyPREXA] 2.5 mg PO TID 03/24/18 03/24/18 History Prazosin HCl [Minipress] 1 mg PO QPM 03/24/18 03/24/18 History SUMAtriptan Succinate [Imitrex] 100 mg PO Q2HR PRN 03/24/18 03/24/18 History Topiramate 75 mg PO HS 03/24/18 03/24/18 History - History History obtained by chart review. PMHx: Hx of Opiate Dependence MDD Fibromyalgia Migraine FORBES Hx of Anemia PTSD [place] Bipolar DO Borderline Personality DO PSHx: R rotator cuff repair Hysterectomy Cholecystectomy Csection Gastric Bypass Cryosurgery D&C x3 FHx: noncontributory Social: Hx of opiate dependence. - Review of Systems ROS unobtainable: due to mental status - Vital signs BP: 120/70 HR: 80 RR: 12 Tmax: 97.0 Pox: 97% on RA Wt: 89kg - Physical Exam -Constitutional: AOx0, arousable with sternal rub, not following commands, GCS 9 (eye-2, verbal-3 , motor-4) -HEENT: 2-3mm pupil size bilaterally, PERRL Neck: supple Heart: RRR, normal S1/S2 Lungs: CTAB, no respiratory distress, no wheezing Abdomen: soft, non-tender Musculoskeletal: normal structure -Musculoskeletal: decreased tone -Neurological: unable to assess with mental status Skin: no rash/lesions Heme/Lymphatic: no unusual bruising or bleeding -Psychiatric: obtunded FMR H&P: Results - Labs Result Diagrams: 03/24/18 17:14 03/24/18 17:14 Lab results: WBC 6.2 thou/uL (4.8-10.8) 03/24/18 17:14 Hgb 13.5 g/dL (12.0-16.0) 03/24/18 17:14 Hct 39.6 % (36.0-47.0) 03/24/18 17:14 MCV 91.2 fL (78.0-98.0) 03/24/18 17:14 Plt Count TNP 03/24/18 17:14 Sodium 137 mmol/L (136-145) 03/24/18 17:14 Potassium 4.0 mmol/L (3.5-5.1) 03/24/18 17:14 Chloride 107 mmol/L (98-107) 03/24/18 17:14 Carbon Dioxide 21 mmol/L (22-29) L 03/24/18 17:14 BUN 17 mg/dL (9.8-20.1) 03/24/18 17:14 Creatinine 0.87 mg/dL (0.6-1.1) 03/24/18 17:14 Glucose 90 mg/dL (70-105) 03/24/18 17:14 Calcium 9.3 mg/dL (7.8-10.44) 03/24/18 17:14 Creatine Kinase 3389 U/L (29-168) H 03/24/18 17:14 CK-MB (CK-2) 55.2 ng/mL (0-6.6) H* 03/24/18 17:14 - EKG Interpretation EKG: NSR FMR H&P: A/P - Problem List (1) Encephalopathy acute Current Visit: No Status: Acute Code(s): G93.40 - ENCEPHALOPATHY, UNSPECIFIED (2) History of opioid abuse Current Visit: Yes Status: Chronic Code(s): Z87.898 - PERSONAL HISTORY OF OTHER SPECIFIED CONDITIONS (3) Rhabdomyolysis Current Visit: No Status: Acute Code(s): M62.82 - RHABDOMYOLYSIS (4) Bipolar 1 disorder Current Visit: Yes Status: Chronic Code(s): F31.9 - BIPOLAR DISORDER, UNSPECIFIED (5) Major depressive disorder Current Visit: Yes Status: Chronic Code(s): F32.9 - MAJOR DEPRESSIVE DISORDER, SINGLE EPISODE, UNSPECIFIED (6) PTSD (post-traumatic stress disorder) Current Visit: Yes Status: Chronic Code(s): F43.10 - POST-TRAUMATIC STRESS DISORDER, UNSPECIFIED (7) Migraine Current Visit: Yes Status: Chronic Code(s): G43.909 - MIGRAINE, UNSP, NOT INTRACTABLE, WITHOUT STATUS MIGRAINOSUS (8) Fibromyalgia Current Visit: No Status: Chronic - Plan Acute Encephalopathy 2/2 Presumed Opiod OD with Hx of Opiod Abuse - seen in ED this morning with + UDS of opiods and benzos, has progressively worsened since admission. GCS on my exam is 9, gave Narcan, improved GCS to 14. VS wnl at this time. Admit to tele obs for observation and monitoring. - Plan to give 2mg more of Narcan due to patient still being very confused and drowsy. Unsure of amount of opiods taken. - Divalproex level pending Rhabdomyolysis - likely 2/2 opiod OD. - CK initially 3,300, recheck in the morning - 1L NS then NS @ 150ml/hr - CMP in AM Hx of multiple different Psych disorders - continue home regimen once at baseline mental function Migraine FORBES - Hold medications for now while altered, continue once at baseline VTE ppx: SCD Code Status: Full Dispo: likely <48h FMR H&P: Upper Level - Pertinent history Pt presents to the ED and states she does not know why she came to the ED. ED provider states she initially presented with chest pain. She also was in ED this AM for dizziness and discharged. She currently denies any pain and IVF just began infusing after her 1st IV failed. History is very limited per patient 's mental status. - Pertinent findings NEURO: Alert, oriented only to place CARDIO: RRR, no RMG RESP: lungs CTAB, no wheezing or crackles EXT: No edema, pulses strong - Plan Date/Time: 03/24/182117 IBang, have evaluated this patient and agree with findings/plan as outlined by manager internet retails sales resident. Pertinent changes/additions are listed here. # Acute Encephalopathy - Unknown cause and has been waxing and waning in the ED. Possibly drug induced after testing positive for Benzos/opiods this AM in addition to multiple psych medications. # Rhabdomyolysis 2/2 decreased PO intake. - CK increased from this morning ~5586-3072. - Will Continue IVF and trending CK. # Chest Pain - negative Troponins x2 but mildly elevated CKMB. Will continue to trend Troponin. EKG WNL and no active chest pain. # Elevated Transaminases - Unknown cause; Will continue to trend
[2018-03-24] MEDS ORDERED: Sodium Chloride 0.9% 1,000 ML IV SCH ×2 (21:45→23:00)
[2018-03-24] MEDS ORDERED: Acetaminophen 325 MG TAB PO PRN (21:45)
[2018-03-24] MEDS ORDERED: Ondansetron ODT 4 MG TAB SL PRN (21:45)
[2018-03-24] MEDS ORDERED: Ondansetron HCl/PF 4 MG/2 ML Vial IVP PRN (21:45)
[2018-03-24 22:20] VITALS: BMI 34.0
[2018-03-24] MEDS ORDERED: Naloxone HCl 2 mg/2 ml Syringe IV SCH ×2 (22:45→23:45)
[2018-03-24] MEDS ORDERED: Naloxone HCl 2 MG in Sodium Chloride 0.9% 500 ML IV SCH (22:45)
[2018-03-24 23:12] LABS: Troponin I Less than 0.010 ng/mL (< 0.028)
[2018-03-24] MEDS: Sodium Chloride 0.9% 1,000 ML IV SCH (23:44)
[2018-03-24] MEDS ORDERED: Naloxone HCl 0.4 mg/ml Vial IVP SCH (23:45)
[2018-03-25 05:10] LABS: ALT (SGPT) 66 U/L (8-55); AST (SGOT) 60 U/L (5-34); Albumin 3.8 g/dL (3.5-5.0); Alkaline Phosphatase 108 U/L (40-150); Anion Gap 11 mmol/L (10-20); BUN (Urea Nitrogen) 12 mg/dL (9.8-20.1); Bilirubin, Total 0.4 mg/dL (0.2-1.2); CK (CPK) 1959 U/L (29-168); Calc. Creatinine Clearance 121 mL/min (70-130); Calcium 8.8 mg/dL (7.8-10.44); Carbon Dioxide 21 mmol/L (22-29); Chloride 112 mmol/L (98-107); Estimated GFR-MDRD 82; Globulin 2.6 g/dL (2.4-3.5); Glucose 116 mg/dL (70-105); Potassium 3.7 mmol/L (3.5-5.1); Protein, Total 6.4 g/dL (6.0-8.3); Sodium 140 mmol/L (136-145)
[2018-03-25] MEDS: Sodium Chloride 0.9% 1,000 ML IV SCH ×3 (06:18→21:53)
--- NOTE | 2018-03-25 06:53 | PDOC.FM ---
- Subjective Subjective: Felisha Kamara seen at bedside this morning. She requests food. She is more oriented this morning compared to baseline but remains somewhat altered. There were no acute events overnight. She states that she did not take more than her normal dosage of pain medicine, tylenol #3 2 tab q6h for pain. She complains of pain but is unable to tell me what pain she is having. - Objective MAR Reviewed: Yes Vital Signs & Weight: Vital Signs (12 hours) Temp Pulse Resp BP BP Pulse Ox 03/25/18 04:20 98.3 F 72 16 125/69 100 03/24/18 22:36 97.6 F 77 16 119/92 H 100 03/24/18 21:48 97 F L 80 12 03/24/18 21:29 97.0 F L 80 12 120/70 97 Weight Weight 89.811 kg I&O: 03/23/18 03/24/18 03/25/18 06:59 06:59 06:59 Intake Total 1642 Output Total 375 Balance 1267 Result Diagrams: 03/24/18 17:14 03/25/18 04:28 <Gideon Packer - Last Filed: 03/25/18 07:46> - Objective Vital Signs & Weight: Vital Signs (12 hours) Temp Pulse Resp BP BP Pulse Ox 03/25/18 08:00 98.3 F 72 16 03/25/18 07:32 98.0 F 70 16 112/57 L 99 03/25/18 04:20 98.3 F 72 16 125/69 100 03/24/18 22:36 97.6 F 77 16 119/92 H 100 Weight Weight 89.811 kg I&O: 03/24/18 03/25/18 03/26/18 06:59 06:59 06:59 Intake Total 1642 Output Total 375 Balance 1267 Result Diagrams: 03/24/18 17:14 03/25/18 04:28 <Kirit Martin - Last Filed: 03/25/18 10:30> Phys Exam - Physical Examination Constitutional: NAD HEENT: moist MMs, sclera anicteric Neck: no JVD, supple, full ROM Respiratory: no wheezing, no rales, no rhonchi, clear to auscultation bilateral Cardiovascular: RRR, no significant murmur Gastrointestinal: soft, non-tender, no distention Musculoskeletal: no edema, pulses present Neurological: non-focal, normal sensation, moves all 4 limbs Skin: no rash <Gideon Packer - Last Filed: 03/25/18 07:46> Dx/Plan (1) Encephalopathy acute Code(s): G93.40 - ENCEPHALOPATHY, UNSPECIFIED Status: Acute (2) Rhabdomyolysis Code(s): M62.82 - RHABDOMYOLYSIS Status: Acute (3) History of opioid abuse Code(s): Z87.898 - PERSONAL HISTORY OF OTHER SPECIFIED CONDITIONS Status: Chronic (4) Major depressive disorder Code(s): F32.9 - MAJOR DEPRESSIVE DISORDER, SINGLE EPISODE, UNSPECIFIED Status : Chronic (5) Abnormal LFTs Code(s): R79.89 - OTHER SPECIFIED ABNORMAL FINDINGS OF BLOOD CHEMISTRY Status : Acute - Plan Plan: 1) Acute Encephalopathy 2/2 Presumed Opiod OD with Hx of Opioid Abuse - seen in ED this morning with + UDS of opiods and benzos, has progressively worsened since admission. GCS on my exam is 9, gave Narcan, improved GCS to 14. VS wnl at this time. Admit to tele obs for observation and monitoring. - Plan to give 2mg more of Narcan due to patient still being very confused and drowsy. Unsure of amount of opiods taken. - Divalproex level elevated to 105 2) Rhabdomyolysis - likely 2/2 opiod OD. - CK initially 3,300, recheck this morning is 1959 - 1L NS then NS @ 150ml/hr 3) Hx of multiple different Psych disorders - continue home regimen once at baseline mental function 4) Migraine FORBES - Hold medications for now while altered, continue once at baseline <Gideon Packer - Last Filed: 03/25/18 07:46> Attending Addendum - Attending Addendum Date/Time: 03/25/18 1026 I personally evaluated the patient and discussed the management with Dr. Packer I agree with the History, Examination, Assessment and Plan documented above with any addition or exceptions noted below. Patient more responsive this AM requesting po. Continue IV hydration and avoid any opiods or sedatives. Concern with strong PMHX of opiod dependance and escalation recently of seeking drugs from multiple source, PCP, Neurology and local Emergency Rooms. <Kirit Martin - Last Filed: 03/25/18 10:30>
--- NOTE | 2018-03-25 07:04 | PDOC.EVN ---
Attending Addendum - Attending Addendum Date/Time: 03/25/18 0655 I personally evaluated the patient at appr 1150pm on 03/24/2018 and discussed the management with I agree with the History, Examination, Assessment and Plan documented above with any addition or exceptions noted below. 58 yo female with Major Depression presenting to ER twice today with dizziness and later with Chest pain patient found with AMS. Patient with history of multiple site ER visits recently with c /o pain related to migraine and chronic LBP. Patient recently in retirement outpatient care at [facility] for Bipolar Depression with suicidal ideation. PMHX notable for opiod dependance, multiple admissions for psychiatric inpatient treatment, Gastric Bypass in 2000, Hysterectomy and C/S. Patient under care of Dr Mendoza for refractory headaches.On the exam Patient initially obtunded and lethargic with good response to narcan. It is noted UDS positive for opiods however patient denies recent usuage.
[2018-03-25] MEDS ORDERED: Ketorolac Tromethamine 30 MG/ML VIAL IVP PRN (13:41)
[2018-03-25] MEDS ORDERED: Non-Formulary Item 1 EACH (Sumatriptan Succinate [Imitrex] 100 MG) PO PRN (13:43)
[2018-03-25] MEDS ORDERED: SUMAtriptan Succinate 50 MG TAB PO PRN (14:04)
[2018-03-25] MEDS: OLANZapine 2.5 MG TAB PO SCH ×2 (17:49→20:38)
[2018-03-25] MEDS: Fluticasone Propionate Nasal Spray 16 gm Bottle NASAL SCH (20:40)
[2018-03-25] MEDS ORDERED: Topiramate 25 MG TAB PO SCH (21:00)
[2018-03-25] MEDS ORDERED: DULoxetine 60 MG CAP PO SCH (21:00)
[2018-03-26 05:00] LABS: Anion Gap 9 mmol/L (10-20); BUN (Urea Nitrogen) 7 mg/dL (9.8-20.1); CK (CPK) 684 U/L (29-168); Calc. Creatinine Clearance 133 mL/min (70-130); Calcium 8.7 mg/dL (7.8-10.44); Carbon Dioxide 21 mmol/L (22-29); Chloride 115 mmol/L (98-107); Estimated GFR-MDRD Greater than 90; Glucose 97 mg/dL (70-105); Potassium 3.5 mmol/L (3.5-5.1); Sodium 141 mmol/L (136-145)
[2018-03-26] MEDS: Sodium Chloride 0.9% 1,000 ML IV SCH ×2 (05:25→12:13)
--- NOTE | 2018-03-26 06:45 | PDOC.FM ---
- Subjective Subjective: Felisha Kamara seen at bedside this morning. She is slightly more oriented today. She has no complaints and there were no acute events overnight. When asked about what happened, she was unable to tell me why she overdosed on opioids. She has a history of suicide attempt by overdose. She states that she is not actively suicidal but also states that is may be best if she goes to [facility] after this admission. - Objective MAR Reviewed: Yes Vital Signs & Weight: Vital Signs (12 hours) Temp Pulse Resp BP BP Pulse Ox 03/26/18 03:18 98.4 F 68 14 116/55 L 97 03/25/18 23:36 98.8 F 70 17 104/53 L 98 03/25/18 20:00 98.9 F 75 16 03/25/18 19:09 98.9 F 75 16 110/58 L 100 Weight Weight 92.306 kg I&O: 03/24/18 03/25/18 03/26/18 06:59 06:59 06:59 Intake Total 1642 1125 Output Total 375 1450 Balance 1267 -325 Result Diagrams: 03/24/18 17:14 03/26/18 04:07 <Gideon Packer - Last Filed: 03/26/18 07:38> - Objective Vital Signs & Weight: Vital Signs (12 hours) Temp Pulse Resp BP BP BP Pulse Ox 03/26/18 07:34 98.7 F 68 16 138/87 100 03/26/18 03:18 98.4 F 68 14 116/55 L 97 03/25/18 23:36 98.8 F 70 17 104/53 L 98 Weight Weight 92.306 kg I&O: 03/25/18 03/26/18 03/27/18 06:59 06:59 06:59 Intake Total 1642 1125 Output Total 375 1450 Balance 1267 -325 Result Diagrams: 03/24/18 17:14 03/26/18 04:07 <Kirit Martin - Last Filed: 03/26/18 10:40> Phys Exam - Physical Examination Constitutional: NAD HEENT: moist MMs, sclera anicteric Neck: no JVD, supple, full ROM Respiratory: no wheezing, no rales, no rhonchi, clear to auscultation bilateral Cardiovascular: RRR, no significant murmur Gastrointestinal: soft, non-tender, no distention Musculoskeletal: no edema, pulses present Neurological: non-focal, normal sensation, moves all 4 limbs Psychiatric: normal affect, A&O x 3 Skin: no rash, normal turgor <Gideon Packer - Last Filed: 03/26/18 07:38> Dx/Plan (1) Encephalopathy acute Code(s): G93.40 - ENCEPHALOPATHY, UNSPECIFIED Status: Acute (2) Rhabdomyolysis Code(s): M62.82 - RHABDOMYOLYSIS Status: Acute (3) History of opioid abuse Code(s): Z87.898 - PERSONAL HISTORY OF OTHER SPECIFIED CONDITIONS Status: Chronic (4) Major depressive disorder Code(s): F32.9 - MAJOR DEPRESSIVE DISORDER, SINGLE EPISODE, UNSPECIFIED Status : Chronic (5) Abnormal LFTs Code(s): R79.89 - OTHER SPECIFIED ABNORMAL FINDINGS OF BLOOD CHEMISTRY Status : Acute - Plan Plan: 1) Acute Encephalopathy 2/2 Presumed Opiod OD with Hx of Opioid Abuse - seen in ED this morning with + UDS of opiods and benzos, has progressively worsened since admission. GCS on my exam is 9, gave Narcan, improved GCS to 14. VS wnl at this time. Admit to tele obs for observation and monitoring. - Plan to give 2mg more of Narcan due to patient still being very confused and drowsy. Unsure of amount of opiods taken. - Divalproex level elevated to 105 - Patient's mental status is improved today - Patient medically stable - Consider MHMR consult this AM and possible D/c 2) Rhabdomyolysis - likely 2/2 opiod OD. - CK initially 3,300, 1959 yesterday, and this morning CK was 684 - Continue IVFs until D/c 3) Hx of multiple different Psych disorders - continue home regimen once at baseline mental function 4) Migraine FORBES - Hold medications for now while altered, continue once at baseline <Gideon Packer - Last Filed: 03/26/18 07:38> Attending Addendum - Attending Addendum Date/Time: 03/26/18 1037 I personally evaluated the patient and discussed the management with Dr. Packer I agree with the History, Examination, Assessment and Plan documented above with any addition or exceptions noted below.Patient alert responds appropriately voices some suicidal ideation MHMR here CK less 1,000 VSS she is medically cleared for transfer to mental health facility. oil heaterman concern with Opiod dependence with repeated inappropriate use of opiods and benzodiazepines. <Kirit Martin - Last Filed: 03/26/18 10:40>
[2018-03-26] MEDS: OLANZapine 2.5 MG TAB PO SCH ×2 (08:48→15:08)
[2018-03-26] MEDS: Fluticasone Propionate Nasal Spray 16 gm Bottle NASAL SCH (08:51)
--- NOTE | 2018-03-26 14:53 | PDOC.EVN ---
Event Note - Event Note Event Note: Doc to doc performed with admitting doctor at [facility]. Discussed patient's clinical course. She is stable and medically cleared from our standpoint. Pt was accepted for transfer.
[2018-03-26 16:08] VITALS: BP 114/72; TEMP 98.2
--- NOTE | 2018-03-26 18:02 | DIS-2 ---
DATE OF ADMISSION: 03/24/2018 DATE OF DISCHARGE: 03/26/2018 RESIDENT: Gideon Packer M.D. ADMITTING ATTENDING: Kirit Martin M.D. DISCHARGE ATTENDING: Kirit Martin M.D. CONSULTATION: [facility] on 03/26/2018. PROCEDURES: Chest x-ray on 03/24/2018 impression; increased interstitial opacities in the lung bases likely representing atelectasis, superimposed infiltrate cannot be excluded. PRIMARY DIAGNOSES: 1. Acute encephalopathy, likely secondary to opioid overdose. 2. Rhabdomyolysis. SECONDARY DIAGNOSES: 1. Anxiety and depression. 2. Chronic pain syndrome. 3. Posttraumatic stress disorder. 4. Migraine. 5. History of opioid abuse. 6. Fibromyalgia. DISCHARGE MEDICATIONS: Resume all home medications includin. Topiramate 75 mg p.o. at bedtime. 2. Sumatriptan succinate 100 mg p.o. q.2 hours p.r.n. 3. Prazosin HCL 1 mg p.o. q.p.m. 4. Duloxetine 60 mg p.o. at bedtime. 5. Divalproex sodium ER 250 mg p.o. t.i.d. 6. Ketorolac tromethamine 20 mg p.o. p.r.n. 7. Vitamin D3 5000 units p.o. daily. 8. Diazepam 5 mg p.o. daily p.r.n. 9. Duloxetine 120 mg p.o. daily. 10. Tylenol #3 one 1 tab p.o. p.r.n. DISCONTINUED MEDICATION: Tylenol #3 one tab p.o. p.r.n. HISTORY OF PRESENT ILLNESS/HOSPITAL COURSE: Felisha Kamara is a 58-year-old female with past medical history of bipolar disorder, major depressive disorder with history of suicide attempts and history o f opioid addiction who presented to the ED with chest pain. Initially, she went to the ED for dizzin ess and was discharged home, returned hours later with chest pain. Per the ED, chest pain was descri bed as atypical chest pain, but admitting team was unable to assess this because upon evaluation of t he patient, she was A&O x0, not following commands and hard to arouse, would not even wake up with la b draws. When she was awake, she made incoherent speech. Per nursing staff, this was a change from when she arrived to the floor. In the ED, she was given IV fluids for lab finding of CK 3,300. On a dmission, vital signs are 120/70, heart rate 80, respiratory rate 12, temperature 97.0, pulse ox 97% on room air. Patient's initial labs were hemoglobin 13.5, hematocrit 39.6, white blood cell count 6. 2. Sodium 137, potassium 4.0, chloride 107, bicarbonate 21, BUN 17, creatinine 0.87, glucose of 90 w ith creatinine kinase of 3,389. EKG showed normal sinus rhythm. Patient was admitted for acute ence phalopathy secondary to presumed opioid overdose in a patient with history of opioid abuse. When she was seen in the ED in the morning, she had a positive UDS for opioids and benzos. Her encephalopath y has progressively worsened since admission. GCS on admitting teens exam was 9. Narcan was given a nd improved GCS to 14. Vital signs were within normal limits. She was placed on tele ops for observ ation, monitoring. Over her admission, patient's mental status improved. Her rhabdomyolysis improve d, CK down trended to 683 on day of discharge 03/26/2018. When the patient was medically stable on 0 03/26/2018, [facility] was consulted. MR came to evaluate patient and the decision was made that she shou ld go to inpatient facility. She is currently pending placement at this time. It is likely that she will go to a route for inpatient rehabilitation. The patient stated that she was not actively suici vickey in the hospital, but she believes it would be safer if she went to an inpatient rehabilitation [facility]. DISPOSITION: Stable. The patient is stable from a medical standpoint. From a mental standpoint may not be safe for patient to go home around which is why we are working to get her into inpatient reha b facility. She has a history of opioid abuse and history of suicidal attempts from overdosing on me dication. It is recommended that patient not be prescribed opioids. DISCHARGE INSTRUCTIONS: 1. Location: Inpatient rehab facility. 2. Diet: Regular. 3. Activity: As tolerated. 4. Follow up with primary care provider and after discharged from rehab facility.
== END 2018-03-26 16:05 ==
LOC: ERS 15:49 → 2SW 21:13
PROVIDERS: ADMIT Family Medicine; ATTEND Family Medicine
DX: G93.40 Encephalopathy, unspecified (principal); M62.82 Rhabdomyolysis; F32.9 Major depressive disorder, single episode, unspecified; R79.89 Other specified abnormal findings of blood chemistry; G43.909 Migraine, unspecified, not intractable, without status migrainosus; F41.9 Anxiety disorder, unspecified; G89.4 Chronic pain syndrome; F43.10 Post-traumatic stress disorder, unspecified; M79.7 Fibromyalgia; Z79.899 Other long term (current) drug therapy; Z87.898 Personal history of other specified conditions; Z79.52 Long term (current) use of systemic steroids; Z88.1 Allergy status to other antibiotic agents; Z88.8 Allergy status to other drugs, medicaments and biological substances; Z79.82 Long term (current) use of aspirin
CPT/HCPCS: 36415; 71045; 80048; 80053; 80164; 80306; 80307; 81003; 81015; 82550; 82553; 84443; 84484; 85025; 93005; 94760; 96360; 96361; 96374; 96375; 96376; A4216; G0378; G8996-GN-CI; G8997-GN-CI; J1885; J2310

== ENCOUNTER 2018-06-15 19:02 | Emergency (ER) | payer OTHER ==
[2018-06-15] MEDS ORDERED: HYDROcodone/Acetaminophen 5/325 mg Tablet ONE (20:19)
== END 2018-06-15 20:48 | disposition home or self-care (01) ==
LOC: ERS 19:02
DX: G89.29 Other chronic pain (principal); G43.909 Migraine, unspecified, not intractable, without status migrainosus; F41.9 Anxiety disorder, unspecified; Z79.899 Other long term (current) drug therapy
CPT/HCPCS: 99283

== ENCOUNTER 2018-06-29 00:36 | Emergency (ER) | payer MEDICARE, OTHER ==
[2018-06-29] MEDS ORDERED: Dexamethasone 10 MG/ML VIAL ONE (02:44)
[2018-06-29] MEDS ORDERED: Ketorolac Tromethamine 60 MG/2 ML VIAL ONE (02:44)
[2018-06-29] MEDS ORDERED: Metoclopramide HCl 10 MG TAB ONE ×2 (02:44→02:46)
[2018-06-29 02:49] LABS: ALT (SGPT) 35 U/L (8-55); AST (SGOT) 15 U/L (5-34); Alkaline Phosphatase 72 U/L (40-150); Anion Gap 14 mmol/L (10-20); BUN (Urea Nitrogen) 13 mg/dL (9.8-20.1); Bilirubin, Total 0.3 mg/dL (0.2-1.2); CK (CPK) 34 U/L (29-168); Calc. Creatinine Clearance 0 mL/min (70-130); Calcium 9.7 mg/dL (7.8-10.44); Carbon Dioxide 20 mmol/L (22-29); Chloride 111 mmol/L (98-107); Estimated GFR-MDRD 56; Globulin 2.9 g/dL (2.4-3.5); Glucose 108 mg/dL (70-105); Potassium 3.3 mmol/L (3.5-5.1); Protein, Total 6.9 g/dL (6.0-8.3); Sodium 142 mmol/L (136-145)
[2018-06-29 02:58] LABS: Band 2 % (5-11); Hemoglobin 14.1 g/dL (12.0-16.0); Lymphocytes 60 % (21-51); MDiff Complete? YES; Mean Corpuscular HGB CONC 33.1 g/dL (32.0-36.0); Mean Corpuscular Hemoglobin 31.1 pg (27.0-31.0); Mean Platelet Volume 10.5 fL (7.4-10.4); Monocytes 11 % (0-10); Neutrophil 27 % (42-75); PLT Morphology Comment PLT clumps seen-LOW; Red Blood Cell (RBC) Count 4.53 mill/uL (4.20-5.40); White Blood Cell (WBC) Count 4.9 thou/uL (4.8-10.8)
[2018-06-29] MEDS ORDERED: Potassium Chloride 20 MEQ TAB ONE (03:02)
[2018-06-29 03:15] LABS: Bilirubin Negative (Negative); Blood, Urine Negative (Negative); Clarity CLEAR (Clear); Glucose, Urine (Dipstick) Negative (Negative); Leukocyte Negative (Negative); Nitrite Negative (Negative); Protein, Urine (Dipstick) Negative (Neg-Trace); Specific Gravity, Urine 1.003 (1.002-1.036); Urobilinogen 0.2 mg/dL (0.2-1.0); pH, Urine 6.5 (5.0-9.0)
== END 2018-06-29 03:36 | disposition home or self-care (01) ==
LOC: ERS 00:36
DX: R51 Headache (principal); D64.9 Anemia, unspecified; F41.9 Anxiety disorder, unspecified; F31.9 Bipolar disorder, unspecified; F43.10 Post-traumatic stress disorder, unspecified; Z79.899 Other long term (current) drug therapy
CPT/HCPCS: 36415; 80053; 81003; 82550; 85025; 96372; J1100; J1885

== ENCOUNTER 2018-08-04 10:10 | Emergency (ER) | payer MEDICARE, OTHER ==
[2018-08-04 11:11] LABS: Bilirubin Negative (Negative); Blood, Urine Negative (Negative); Clarity CLEAR (Clear); Glucose, Urine (Dipstick) Negative (Negative); Leukocyte Trace (Negative); Nitrite Negative (Negative); Protein, Urine (Dipstick) Negative (Neg-Trace); Specific Gravity, Urine 1.008 (1.002-1.036); Urobilinogen 0.2 mg/dL (0.2-1.0); pH, Urine 7.5 (5.0-9.0)
[2018-08-04 11:16] LABS: Bacteria/HPF None Seen HPF (None Seen); Hyaline Casts/LPF 0-3 HYALINE CAST LPF (0-3 Hyaline); Pathc Cast-AUWi Flag 0.14 (0-2.49); RBC/HPF 0-3 HPF (0-3); Squamous Epithelial None Seen HPF (0-3); WBC/HPF 0-3 HPF (0-3)
[2018-08-04] MEDS ORDERED: Cyclobenzaprine 10 MG TAB ONE (12:09)
[2018-08-04] MEDS ORDERED: Ketorolac Tromethamine 30 MG/ML VIAL ONE (12:09)
== END 2018-08-04 13:00 | disposition home or self-care (01) ==
LOC: ERS 10:10
DX: M54.42 Lumbago with sciatica, left side (principal); G43.909 Migraine, unspecified, not intractable, without status migrainosus; D64.9 Anemia, unspecified; F43.10 Post-traumatic stress disorder, unspecified; F41.9 Anxiety disorder, unspecified; F31.9 Bipolar disorder, unspecified; F60.3 Borderline personality disorder; Z79.899 Other long term (current) drug therapy
CPT/HCPCS: 81003; 81015; 96372; J1885

== ENCOUNTER 2018-08-12 15:45 | Emergency (ER) | payer MEDICARE ==
[2018-08-12] MEDS ORDERED: Acetaminophen 500 MG TAB ONE (16:17)
== END 2018-08-12 16:48 | disposition home or self-care (01) ==
LOC: ERS 15:45
DX: M54.42 Lumbago with sciatica, left side (principal); G89.29 Other chronic pain; G43.909 Migraine, unspecified, not intractable, without status migrainosus; D64.9 Anemia, unspecified; F41.9 Anxiety disorder, unspecified; F31.9 Bipolar disorder, unspecified; F90.9 Attention-deficit hyperactivity disorder, unspecified type; F60.3 Borderline personality disorder; Z79.899 Other long term (current) drug therapy
CPT/HCPCS: 99283

== ENCOUNTER 2018-08-25 08:44 | Outpatient (CLI) | payer MEDICARE ==
--- NOTE | 2018-08-25 11:51 | MRI ---
MRI BRAIN WITH AND WITHOUT IV CONTRAST: Date: 08/25/18 HISTORY: Migraine headaches, getting worse and increasing in frequency and intensity. FINDINGS: No restricted diffusion is seen. No evidence of infarct, hemorrhage, mass, midline shift, or abnormal extra-axial fluid collections are noted. The ventricular size is normal and the basilar cisterns are patent. No abnormal postcontrast enhancement is seen. The visualized paranasal sinuses and mastoid a ir cells are well aerated. IMPRESSION: Normal exam. POS: [facility]
[2018-08-25] MEDS ORDERED: Gadobenate Dimeglumine 529 MG/1 ML (20ML VIAL) ONE (16:21)
== END 2018-08-25 08:45 | disposition home or self-care (01) ==
LOC: BICMRI 08:44
PROVIDERS: ATTEND Psychiatry & Neurology Neurology
DX: G43.019 Migraine without aura, intractable, without status migrainosus (principal)
CPT/HCPCS: 70553; A9579

== ENCOUNTER 2018-08-28 10:05 | Outpatient (CLI) | payer MEDICARE, OTHER ==
--- NOTE | 2018-08-28 12:05 | MRI ---
MRI LUMBAR SPINE: Date: 08-28-18 Provided Clinical History: Chronic low back pain. FINDINGS: Five lumbar vertebral bodies are assumed. Lumbar alignment appears normal. Vertebral body heights maral ear preserved. No regional marrow signal abnormality is apparent. The conus medullaris is normal in s ignal and terminates at an appropriate level. L1-2: There is no significant central canal or foraminal narrowing apparent. L2-3: There is no significant central canal or neural foraminal narrowing apparent. L3-4: There is no significant central canal or foraminal narrowing apparent. L4-5: There is bilateral facet arthritis. There is no significant central canal or foraminal narrowin g apparent. L5-S1: There is mild bilateral facet arthritis. There is no significant central canal or foraminal na rrowing apparent. IMPRESSION: Lower lumbar spine facet arthritis without evidence for significant central canal or foraminal narrow ing. POS: [facility]
== END 2018-08-28 10:06 | disposition home or self-care (01) ==
LOC: BICMRI 10:05
PROVIDERS: ATTEND Family Medicine
DX: M54.5 Low back pain (principal); G89.29 Other chronic pain; M46.96 Unspecified inflammatory spondylopathy, lumbar region
CPT/HCPCS: 72148

== ENCOUNTER 2018-09-08 23:08 | Emergency (ER) | payer MEDICARE ==
[2018-09-08 23:56] LABS: #Basophils 0.1 thou/uL (0.0-0.2); #Eosinphils 0.1 thou/uL (0.0-0.7); #Lymphocytes 2.4 thou/uL (1.20-3.40); #Monocytes 0.5 thou/uL (0.11-0.59); #Neutrophils 2.1 thou/uL (1.40-6.50); %Basophils 1.2 % (0.0-1.0); %Lymphocytes 47.1 % (21.0-51.0); %Monocytes 9.6 % (0.0-10.0); %Neutrophils 41.1 % (42.0-75.0); Hemoglobin 14.8 g/dL (12.0-16.0); Mean Corpuscular HGB CONC 33.8 g/dL (32.0-36.0); Mean Corpuscular Hemoglobin 31.1 pg (27.0-31.0); Mean Corpuscular Volume 91.9 fL (78.0-98.0); Mean Platelet Volume 7.9 fL (7.4-10.4); Platelet Count 309 thou/uL (130-400); RBC Distribution Width 11.6 % (11.5-14.5); Red Blood Cell (RBC) Count 4.76 mill/uL (4.20-5.40); White Blood Cell (WBC) Count 5.1 thou/uL (4.8-10.8)
[2018-09-09 00:40] LABS: ALT (SGPT) 27 U/L (8-55); AST (SGOT) 25 U/L (5-34); Acetaminophen Less than 6.0 mcg/mL (10.0-30.0); Albumin 4.4 g/dL (3.5-5.0); Alcohol Less than 10 mg/dL (Less than 10); Alkaline Phosphatase 81 U/L (40-150); Anion Gap 15 mmol/L (10-20); BUN (Urea Nitrogen) 15 mg/dL (9.8-20.1); Bilirubin, Total 0.2 mg/dL (0.2-1.2); CK (CPK) 46 U/L (29-168); Calc. Creatinine Clearance 0 mL/min (70-130); Calcium 9.8 mg/dL (7.8-10.44); Carbon Dioxide 21 mmol/L (22-29); Chloride 107 mmol/L (98-107); Estimated GFR-MDRD 65; Globulin 3.4 g/dL (2.4-3.5); Glucose 76 mg/dL (70-105); Potassium 4.3 mmol/L (3.5-5.1); Protein, Total 7.8 g/dL (6.0-8.3); Salicylate Less than 8.0 mg/dL (15.0-30.0); Sodium 139 mmol/L (136-145)
[2018-09-09 00:54] LABS: Bilirubin Negative (Negative); Blood, Urine Negative (Negative); Clarity CLEAR (Clear); Glucose, Urine (Dipstick) Negative (Negative); Leukocyte Small (Negative); Nitrite Negative (Negative); Protein, Urine (Dipstick) Negative (Neg-Trace); Specific Gravity, Urine 1.013 (1.002-1.036); Urobilinogen 0.2 mg/dL (0.2-1.0)
[2018-09-09 00:57] LABS: Bacteria/HPF None Seen HPF (None Seen); Hyaline Casts/LPF 0-3 HYALINE CAST LPF (0-3 Hyaline); Pathc Cast-AUWi Flag 0.14 (0-2.49); RBC/HPF 0-3 HPF (0-3); Squamous Epithelial 0-3 HPF (0-3)
[2018-09-09 01:05] LABS: Amphetamine Not Detected (NotDetected); Barbiturates Screen Not Detected (NotDetected); Benzodiazepine Screen Detected (NotDetected); Cocaine Metabolite Screen Not Detected (NotDetected); Medtox Control Line Valid? VALID (VALID); Medtox Reader # READER 1; Methadone Not Detected (NotDetected); Methamphetamine Not Detected (NotDetected); Opiate Screen Detected (NotDetected); Oxycodone Screen Not Detected (NotDetected); Phencyclidine (PCP) Not Detected (NotDetected); THC/Cannabinoid Screen Not Detected (NotDetected); Tricyclic Screen Not Detected (NotDetected)
[2018-09-09] MEDS ORDERED: Lorazepam 2 MG/ML VIAL ONE (05:11)
--- NOTE | 2018-09-12 14:16 | EKG ---
Test Reason : Blood Pressure : / mmHG Vent. Rate : 087 BPM Atrial Rate : 087 BPM P-R Int : 160 ms QRS Dur : 088 ms QT Int : 350 ms P-R-T Axes : -02 -16 008 degrees QTc Int : 421 ms Normal sinus rhythm Minimal voltage criteria for LVH, may be normal variant Borderline ECG Confirmed by PATRICIA MENDOSA, PHIL ([id number]), newspaper editor managing REBECA WHITFIELD ([id number]) on 09/12/2018 2:15:39 PM Referred By: Confirmed By:PHIL GOMEZ MD
== END 2018-09-09 06:50 | disposition home or self-care (01) ==
LOC: ERS 23:08
DX: F41.8 Other specified anxiety disorders (principal); G43.909 Migraine, unspecified, not intractable, without status migrainosus; D64.9 Anemia, unspecified; F31.9 Bipolar disorder, unspecified; F43.10 Post-traumatic stress disorder, unspecified; Z79.899 Other long term (current) drug therapy
CPT/HCPCS: 36415; 80053; 80306; 80307; 81003; 81015; 82550; 85025; 87086; 93005; 96372; J2060

== ENCOUNTER 2018-10-11 18:21 | Emergency (ER) | payer MEDICARE | END 2018-10-11 18:59 | disposition left against medical advice (07) | LOC: ERS 18:21 | DX: Z53.21 Procedure and treatment not carried out due to patient leaving prior to being seen by health care provider (principal) ==

== ENCOUNTER 2018-10-22 22:25 | Emergency (ER) | payer MEDICARE ==
[2018-10-22 23:36] LABS: #Lymphocytes 2.1 thou/uL (1.20-3.40); #Monocytes 0.3 thou/uL (0.11-0.59); %Eosinophils 0.9 % (0.0-10.0); %Lymphocytes 46.5 % (21.0-51.0); %Monocytes 7.2 % (0.0-10.0); %Neutrophils 44.4 % (42.0-75.0); Hemoglobin 13.1 g/dL (12.0-16.0); Mean Corpuscular HGB CONC 33.7 g/dL (32.0-36.0); Mean Corpuscular Hemoglobin 31.4 pg (27.0-31.0); Mean Platelet Volume 8.3 fL (7.4-10.4); Platelet Count 233 thou/uL (130-400); RBC Distribution Width 11.1 % (11.5-14.5); Red Blood Cell (RBC) Count 4.19 mill/uL (4.20-5.40); White Blood Cell (WBC) Count 4.6 thou/uL (4.8-10.8)
--- NOTE | 2018-10-22 23:45 | RAD ---
CHEST ONE VIEW: History: Cough. Comparison: 03-24-18 FINDINGS: Cardiac silhouette is magnified by projection. Pulmonary vasculature is unremarkable. Mediastinum is midline. No lobar consolidation or evidence of pneumothorax. Post-operative changes right shoulder. IMPRESSION: No active cardiopulmonary abnormalities are demonstrated. POS: [facility]
[2018-10-22 23:56] LABS: ALT (SGPT) 26 U/L (8-55); AST (SGOT) 20 U/L (5-34); Albumin 4.3 g/dL (3.5-5.0); Alkaline Phosphatase 72 U/L (40-150); Anion Gap 11 mmol/L (10-20); BUN (Urea Nitrogen) 10 mg/dL (9.8-20.1); Bilirubin, Total 0.2 mg/dL (0.2-1.2); Calc. Creatinine Clearance 0 mL/min (70-130); Calcium 9.8 mg/dL (7.8-10.44); Carbon Dioxide 23 mmol/L (22-29); Chloride 108 mmol/L (98-107); Estimated GFR-MDRD 71; Globulin 2.8 g/dL (2.4-3.5); Glucose 98 mg/dL (70-105); Potassium 3.9 mmol/L (3.5-5.1); Protein, Total 7.1 g/dL (6.0-8.3); Sodium 138 mmol/L (136-145)
[2018-10-23] MEDS ORDERED: Meclizine HCl 25 MG TAB ONE (00:18)
[2018-10-23] MEDS ORDERED: Diazepam 5 MG TAB ONE (00:34)
== END 2018-10-23 00:58 | disposition home or self-care (01) ==
LOC: ERS 22:25
DX: R42 Dizziness and giddiness (principal); F41.9 Anxiety disorder, unspecified; F32.9 Major depressive disorder, single episode, unspecified
CPT/HCPCS: 36415; 36416; 71045; 80053; 85025; 87804; 93005

== ENCOUNTER 2018-10-27 04:09 | Emergency (ER) | payer MEDICARE, OTHER ==
[2018-10-27 06:20] LABS: Bilirubin Negative (Negative); Blood, Urine Negative (Negative); Clarity CLEAR (Clear); Glucose, Urine (Dipstick) Negative (Negative); Leukocyte Large (Negative); Nitrite Negative (Negative); Protein, Urine (Dipstick) Negative (Neg-Trace); Specific Gravity, Urine 1.008 (1.002-1.036); Urobilinogen 0.2 mg/dL (0.2-1.0)
[2018-10-27 06:23] LABS: Bacteria/HPF None Seen HPF (None Seen); Hyaline Casts/LPF 0-3 HYALINE CAST LPF (0-3 Hyaline); Pathc Cast-AUWi Flag 0.14 (0-2.49); RBC/HPF 0-3 HPF (0-3); Squamous Epithelial 0-3 HPF (0-3); WBC/HPF 21-50 HPF (0-3)
[2018-10-27] MEDS ORDERED: Diazepam 5 MG TAB ONE (06:55)
== END 2018-10-27 08:24 | disposition home or self-care (01) ==
LOC: ERS 04:09
DX: F41.9 Anxiety disorder, unspecified (principal); N39.0 Urinary tract infection, site not specified; G43.709 Chronic migraine without aura, not intractable, without status migrainosus; F32.9 Major depressive disorder, single episode, unspecified; Z79.899 Other long term (current) drug therapy
CPT/HCPCS: 81003; 81015; 87086; 99283

== ENCOUNTER 2018-10-28 17:19 | Emergency (ER) | payer MEDICARE ==
[2018-10-28] MEDS ORDERED: Diazepam 5 MG TAB ONE (19:37)
[2018-10-28] MEDS ORDERED: Ketorolac Tromethamine 60 MG/2 ML VIAL ONE (19:37)
[2018-10-28] MEDS ORDERED: Acetaminophen 500 MG TAB ONE (19:37)
== END 2018-10-28 20:07 | disposition home or self-care (01) ==
LOC: ERS 17:19
DX: F41.9 Anxiety disorder, unspecified (principal); R51 Headache; F32.9 Major depressive disorder, single episode, unspecified; Z79.899 Other long term (current) drug therapy
CPT/HCPCS: 93005; 96372; J1885

== ENCOUNTER 2018-11-15 21:07 | Observation (INO) | payer MEDICARE ==
[2018-11-15 22:35] LABS: #Eosinphils 0.1 thou/uL (0.0-0.7); #Lymphocytes 2.6 thou/uL (1.20-3.40); #Monocytes 0.4 thou/uL (0.11-0.59); #Neutrophils 2.6 thou/uL (1.40-6.50); %Basophils 0.8 % (0.0-1.0); %Eosinophils 2.4 % (0.0-10.0); %Lymphocytes 45.3 % (21.0-51.0); %Monocytes 6.8 % (0.0-10.0); %Neutrophils 44.6 % (42.0-75.0); Hemoglobin 14.9 g/dL (12.0-16.0); Mean Corpuscular Hemoglobin 31.3 pg (27.0-31.0); Mean Corpuscular Volume 92.2 fL (78.0-98.0); Mean Platelet Volume 8.2 fL (7.4-10.4); Platelet Count 247 thou/uL (130-400); RBC Distribution Width 11.3 % (11.5-14.5); Red Blood Cell (RBC) Count 4.76 mill/uL (4.20-5.40); White Blood Cell (WBC) Count 5.8 thou/uL (4.8-10.8)
[2018-11-15 22:44] LABS: BHCG - Serum Negative (NEGATIVE); Pregs Control Background? CLEAR/WHITE (CLR/WHITE); Pregs Control Bar Appear? YES (CONTROL BAR)
[2018-11-15 22:49] LABS: ALT (SGPT) 15 U/L (8-55); AST (SGOT) 16 U/L (5-34); Acetaminophen Less than 6.0 mcg/mL (10.0-30.0); Albumin 4.7 g/dL (3.5-5.0); Alcohol Less than 10 mg/dL (Less than 10); Alkaline Phosphatase 85 U/L (40-150); Anion Gap 16 mmol/L (10-20); BUN (Urea Nitrogen) 18 mg/dL (9.8-20.1); Bilirubin, Total 0.2 mg/dL (0.2-1.2); Calc. Creatinine Clearance 0 mL/min (70-130); Calcium 10.1 mg/dL (7.8-10.44); Carbon Dioxide 20 mmol/L (22-29); Chloride 108 mmol/L (98-107); Estimated GFR-MDRD 52; Globulin 3.2 g/dL (2.4-3.5); Glucose 98 mg/dL (70-105); Potassium 3.8 mmol/L (3.5-5.1); Protein, Total 7.9 g/dL (6.0-8.3); Salicylate Less than 8.0 mg/dL (15.0-30.0); Sodium 140 mmol/L (136-145)
[2018-11-15 23:07] LABS: Thyroid Stimulating Hormone 2.9276 uIU/mL (0.35-4.94)
[2018-11-15] MEDS ORDERED: Acetaminophen 500 MG TAB ONE ×2 (23:07→23:17)
[2018-11-15] MEDS ORDERED: Lorazepam 2 MG/ML VIAL ONE (23:07)
--- NOTE | 2018-11-15 23:10 | CT ---
CT OF THE BRAIN WITHOUT CONTRAST: 11/15/18 INDICATION; Altered mental status. COMPARISON: Prior exam dated 05/22/17. FINDINGS: No acute infarct, hemorrhage or hydrocephalus is present. Septum pellucidum and third ventricle are m idline. The skull and extracranial soft tissues are unremarkable appearing. IMPRESSION: No acute intracranial abnormality. POS: [facility]
[2018-11-16 00:22] LABS: Color Of CSF Supernatant COLORLESS (Colorless); Tube # 3; Unspun CSF Color COLORLESS (Colorless)
[2018-11-16 00:35] LABS: CSF, Glucose 55 mg/dl (40-70); CSF, Protein 40 mg/dL (15-40)
[2018-11-16 00:41] LABS: CSF Source CSF; Clarity Clear (Clear); RBC Count - Manual 73 /cumm (None Seen); Tube # 1; WBC/NonHematics Count - Manual 0 /cumm (0-5)
[2018-11-16 00:45] LABS: CSF Source CSF; Clarity Clear (Clear); RBC Count - Manual 0 /cumm (None Seen); Tube # 4; WBC/NonHematics Count - Manual 0 /cumm (0-5)
[2018-11-16] MEDS ORDERED: Ketorolac Tromethamine 30 MG/ML VIAL ONE (01:15)
--- NOTE | 2018-11-16 01:32 | PDOC.FPRHP ---
- History of Present Illness Chief Complaint: AMS and frequent falls History of Present Illness: The patient is a 58YOF with a PMH significant for bipolar I disorder, anxiety, and depression who presented to the ED with a CC of frequent falls and AMS over the last week since being admitted to [facility] for SI. The patient reports that she started having episodes of lightheadedness with associated falls while still at [facility] requiring her to use a walker for stabilization while walking but has continue to feel lightheaded with standing or sitting up since getting home. Per the patient and her roommate, she has also had AMS and frequently forgets the date or where she is. She also reports having difficulty speaking occasionally having "trouble finding her words." The patient denies any head trauma with any of her falls and denies ever fully losing consciousness. However, she also reports that she occasionally feels dizzy or lightheaded even while laying in bed. She denies any fever/chills, N/V, chest pain or SOB. - Allergies/Adverse Reactions Allergies Allergy/AdvReac Type Severity Reaction Status Date / Time prochlorperazine maleate Allergy Unknown Verified 11/16/18 14:08 [From Compazine] quetiapine [From Seroquel] Allergy Unknown Verified 11/16/18 14:08 clindamycin Allergy Verified 11/16/18 14:10 doxycycline Allergy Verified 11/16/18 14:10 zolpidem [From Ambien] Allergy Verified 11/16/18 14:10 - Home Medications Medication Instructions Recorded Confirmed Type Divalproex Sodium ER [Depakote ER] 250 mg PO TID 03/24/18 11/16/18 History SUMAtriptan Succinate [Imitrex] 25 mg PO DAILY 03/24/18 11/16/18 History Topiramate 75 mg PO HS 03/24/18 11/16/18 History Cholecalciferol (Vitamin D3) 5,000 unit PO DAILY 03/25/18 11/16/18 History [Vitamin D3] DULoxetine [Cymbalta] 120 mg PO DAILY 03/25/18 11/16/18 History Diazepam [Valium] 10 mg PO TID PRN 11/16/18 11/16/18 History SUMAtriptan [Imitrex Nasal [place]] 20 mg NASAL Q2HR PRN 11/16/18 11/16/18 History - History PMHx: MDD, [place], fibromyalgia, h/o migraine headaches, OA, chronic back pain PSHx: R rotator cuff repair, D&Cx3, C/S x1, cholecytstectomy, gastric bypass FHx: Mother- anxiety & depression Social: Lives with roommate in [place]. Denies any EtOH, drug, or tobacco use. - Review of Systems General: reports: other (lightheadedness). denies: fever/chills, weight/ appetite/sleep changes Eyes: denies: eye pain, vision changes ENT: denies: nasal congestion, rhinorrhea Respiratory: denies: cough, shortness of breath Cardiovascular: denies: chest pain, edema Gastrointestinal: denies: nausea, vomiting, abdominal pain Genitourinary: reports: other (no hematuria). denies: dysuria Skin: denies: rashes Musculoskeletal: reports: pain, arthritis/arthralgias Neurological: reports: weakness. denies: numbness, syncope Psychological: reports: anxiety, depression - Vital signs BP: 115/78 HR: 78 RR: 18 Tmax: 98.4F Pox: 98% on RA Wt: 83.46 kg - Physical Exam Constitutional: NAD, awake, alert and oriented, well developed HEENT: normocephalic and atraumatic, PERRLA, EOMI, conjunctiva clear, no scleral icterus, grossly normal vision, grossly normal hearing Neck: supple, FROM, no bruits Heart: RRR, normal S1/S2, no murmurs/rubs/gallops, pulses present, no edema Lungs: CTAB, no respiratory distress, good air movement, no rales/rhonchi, no wheezing Abdomen: soft, non-tender, bowel sounds present Musculoskeletal: normal structure, other (decreased ROM in B/L LEs (suspected to be 2/2 poor effort)) Neurological: CN II-XII intact, normal sensation, other (proprioception intact w / 3/5 strength in B/L LEs, otherwise 5/5 strength throughout) Skin: no rash/lesions, good turgor, capillary refill <2 seconds, no jaundice Heme/Lymphatic: no unusual bruising or bleeding, no purpura, no petechia Psychiatric: normal mood and affect, intact recent and remote memory FMR H&P: Results - Labs Result Diagrams: 11/15/18 22:25 11/15/18 22:25 Lab results: WBC 5.8 thou/uL (4.8-10.8) 11/15/18 22:25 Hgb 14.9 g/dL (12.0-16.0) 11/15/18 22:25 Hct 43.9 % (36.0-47.0) 11/15/18 22:25 MCV 92.2 fL (78.0-98.0) 11/15/18 22:25 Plt Count 247 thou/uL (130-400) 11/15/18 22:25 Neutrophils % 44.6 % (42.0-75.0) 11/15/18 22:25 Sodium 140 mmol/L (136-145) 11/15/18 22:25 Potassium 3.8 mmol/L (3.5-5.1) 11/15/18 22:25 Chloride 108 mmol/L (98-107) H 11/15/18 22:25 Carbon Dioxide 20 mmol/L (22-29) L 11/15/18 22:25 BUN 18 mg/dL (9.8-20.1) 11/15/18 22:25 Creatinine 1.08 mg/dL (0.6-1.1) 11/15/18 22:25 Glucose 98 mg/dL (70-105) 11/15/18 22:25 Calcium 10.1 mg/dL (7.8-10.44) 11/15/18 22:25 Total Bilirubin 0.2 mg/dL (0.2-1.2) 11/15/18 22:25 AST 16 U/L (5-34) 11/15/18 22:25 ALT 15 U/L (8-55) 11/15/18 22:25 Alkaline Phosphatase 85 U/L (40-150) 11/15/18 22:25 Ammonia 57 umol/L (18-72) 11/15/18 22:25 Serum Total Protein 7.9 g/dL (6.0-8.3) 11/15/18 22:25 Albumin 4.7 g/dL (3.5-5.0) 11/15/18 22:25 - Radiology Interpretation CT scan - head Status: report reviewed by me (No acute findings.) FMR H&P: A/P - Problem List (1) Pre-syncope Status: Acute (2) Frequent falls Status: Acute Code(s): R29.6 - REPEATED FALLS (3) Encephalopathy acute Status: Acute Code(s): G93.40 - ENCEPHALOPATHY, UNSPECIFIED (4) Anxiety and depression Status: Chronic Code(s): F41.8 - OTHER SPECIFIED ANXIETY DISORDERS (5) Chronic pain syndrome Status: Chronic Code(s): G89.4 - CHRONIC PAIN SYNDROME (6) Fibromyalgia Status: Chronic (7) History of opioid abuse Status: Chronic Code(s): Z87.898 - PERSONAL HISTORY OF OTHER SPECIFIED CONDITIONS (8) Migraine Status: Chronic Code(s): G43.909 - MIGRAINE, UNSP, NOT INTRACTABLE, WITHOUT STATUS MIGRAINOSUS (9) Obesity (BMI 30-39.9) Status: Chronic Code(s): E66.9 - OBESITY, UNSPECIFIED (10) Osteoarthritis of hips, bilateral Status: Chronic Code(s): M16.0 - BILATERAL PRIMARY OSTEOARTHRITIS OF HIP Qualifiers: Osteoarthritis type: unspecified Qualified Code(s): M16.0 - Bilateral primary osteoarthritis of hip - Plan pre-syncope 2/2 orthostasis vs. TIA vs. iatrogenic vs. psychogenic: - Patient presents w/ reported frequent falls for the last weak with associated pre-syncopal symptoms & leg weakness. Unclear etiology at this point as patient reports orthostasis but lightheadedness while laying down as well. Brain CT did not show any acute process that could explain her symptoms but will r/o any PVD or possible CVA or cardiac anomalies that could explain her falls, weakness, and lightheadedness. TSH WNLs as well as initial troponin. - Willl get an MRI, Echo, & MRA of head and neck. Will also check a FLP to asses for HLD. - Will get orthostats to screen for orthostasis and hold all sedating meds to decrease fall risk. LE weakness: - 3/5 strength in B/l LEs on PE but difficult to discern if patient was actually making adequate effort or not. Still, cannot definitively r/o CVA. - Will get workup as described above to r/o an acute CVA. Will screen for vitamin B12 and folate deficiency as well. - PT and OT consulted as well. MDD: - Aware, will resume home meds. [place]: - Aware, will resume home meds w/ exception of any meds that can worsen drowsiness and increase risk of pre-syncope. Chronic pain: - Aware, will resume home meds w/ exception of any meds that can worsen drowsiness and increase risk of pre-syncope. Fibromyalgia: - Aware, will resume home meds w/ exception of any meds that can worsen drowsiness and increase risk of pre-syncope. h/o migraine headaches: - Aware, will resume home meds. FMR H&P: Upper Level - Pertinent history 58F present to ER for complaint of fall and confusion. She report being discharged from [facility] 1 week ago and has confusion/dizziness since. Roommate and patient report speech finding difficulty, dizziness and weakness in lower extremities. Apparently has fallen x5 when moving out of bed. Dizziness associated with standing up. Report no new med change. Denies recent illness. Roommate and patient both are concerned that she has hip pain from fall and need pain med. They state that toradol and tramadol does not work. However, PCP records indicate that opiods are not appropriate for this patient. - Pertinent findings Gen: Alert, self report oriented only to self and place, but EMS record shows AOx3, dishevel appearing HEENT: Normocephalic, vision and hearing grossly intact, moist mucosal membrane , midline trachea Resp: CTA bilat' CV: RRR with no apparent m/g/r GI: Normoactive, not tender to palpation, no masses felt. Ext: No edema. Strength was 4/5 in both LE, done with great exertion, when tested directly. However, when having patient move for onelia-halpike, moved with considerably more ease. Neuro: CN II-XII grossly intact. No directional nystagmus noted. Test of skew normal. Unable to cooperate with onelia halpike or head impulse test. No focal deficit noted. Psych: Concern for treatment of hip pain with medication besides NSAID or tramadol. - Plan Date/Time: 11/16/18 0034 I, [Oseas Bajwa], have evaluated this patient and agree with findings/plan as outlined by [facility] intern resident. Pertinent changes/additions are listed here. 1. Vertigo with falls - CT head neg for acute injuries, Hip xray neg on preliminary read for fracture - At this time, unable to fully examine for vertigo, but history would be most consistent with orthostatic or iatrogrenic psych med, which is both new/higher dosage after [facility]. SBP in room was witnessed in 80's. Treat with fluid bolus, orthostatic vitals. - Test of skew and direction change nystagmus were both negative, would suggest against central etiology. Will try again with impulse test if patient tolerate. - Consider dysrhythmia. Will monitor with telemetry. - Unable to do onelia halpike but BPPV was considered. 2. LE weakness - CT negative, but stroke still possibility. Will get MRI, cardiac echo, B12/ folate 3. Depression - Chronic issue. - Continue home Duloxetine - Opiod not appropriate, had attempted OD with opiates. 4. Migraine - Chronic issue - Continue topiramate/sumatriptain Addendum - Attending - Attending Attestation Date/Time: 11/16/18 9946 I personally evaluated the patient and discussed the management with Dr. Maguire/ Aydee. I agree with the History, Examination, Assessment and Plan documented above with any addition or exceptions noted below. Patient here with pre-syncope symptoms and posssible orthostasis and dysequilibrium. We suspect this is likely 2/2 psychiatric medications as she is on a few that are very high dose and can cause a lot of her symptoms. Labs overall reassuring, including LP. MRI normal. Carotid dopplers normal. Will obtain records from the inpatient psych hospital to see what changes were made that may be contributing. Consider discharge later today.
[2018-11-16] MEDS ORDERED: Ondansetron ODT 4 MG TAB PO PRN (01:41)
[2018-11-16] MEDS ORDERED: Acetaminophen 325 MG TAB PO PRN (01:41)
[2018-11-16] MEDS ORDERED: Lorazepam 2 MG/ML VIAL ONE (01:53)
[2018-11-16] MEDS ORDERED: Ketorolac Tromethamine 10 MG TAB PO PRN (06:59)
[2018-11-16] MEDS ORDERED: SUMAtriptan Succinate 50 MG TAB PO PRN (07:50)
--- NOTE | 2018-11-16 07:56 | RAD ---
LEFT HIP 2 VIEWS: HISTORY: Hip pain. COMPARISON: None. FINDINGS: No fracture. No malalignment. Small osteophyte formation. The obturator ring is intact. IMPRESSION: No acute abnormality. POS: [facility]
--- NOTE | 2018-11-16 07:57 | RAD ---
RIGHT HIP 2 VIEWS: HISTORY: Hip pain. COMPARISON: None. FINDINGS: There is mild narrowing of the superolateral joint space. Small acetabular osteophyte formation. No acute fracture or malalignment. IMPRESSION: No acute abnormality. POS: [facility]
[2018-11-16] MEDS ORDERED: diphenhydrAMINE 50 MG/ML VIAL IVP SCH (09:00)
[2018-11-16] MEDS ORDERED: Metoclopramide HCl 10 MG/2 ML VIAL IVP SCH (09:00)
[2018-11-16] MEDS ORDERED: DULoxetine 60 MG CAP PO SCH ×2 (09:00→21:00)
[2018-11-16] MEDS ORDERED: Acetaminophen 325 MG TAB ONE (10:30)
[2018-11-16] MEDS ORDERED: Ketorolac Tromethamine 10 MG TAB PO SCH (10:45)
--- NOTE | 2018-11-16 11:26 | ULT ---
CAROTID DOPPLER ULTRASOUND: Date: 11/16/18 HISTORY: Presyncope. COMPARISON: None. TECHNIQUE: Real-time Woods scale, color Doppler, and spectral analysis of the extracranial carotid and vertebral arteries was performed. FINDINGS: There is antegrade flow of both vertebral arteries. Minimal atherosclerotic plaque. No elevated peak systolic velocities within the internal carotid arteries. IMPRESSION: No hemodynamically significant stenosis. POS: [facility]
[2018-11-16] MEDS ORDERED: Diazepam 5 MG TAB ONE (11:55)
--- NOTE | 2018-11-16 12:29 | MRI ---
MRI BRAIN NONCONTRAST: DATE: 11-16-18 HISTORY: 58-year-old female with TIA. Recent onset of multiple falls. Rule out stroke. FINDINGS: The ventricles are normal in size and configuration. There is no major intraaxial signal abnormality , restricted diffusion, midline shift or any other mass effect, recent intraaxial hemorrhage, or extr aaxial fluid collection. IMPRESSION: Normal. mauro POS: [facility]
[2018-11-16 16:45] VITALS: BP 111/69; TEMP 98
[2018-11-16 17:51] VITALS: BMI 34.0
[2018-11-16] MEDS ORDERED: Topiramate 25 MG TAB PO SCH (21:00)
--- NOTE | 2018-11-17 08:56 | DIS ---
DATE OF ADMISSION: 11/16/2018 DATE OF DISCHARGE: 11/16/2018 RESIDENT: Karma Edward MD, PGY-1 ADMITTING ATTENDING: Cesario Valderrama MD DISCHARGE ATTENDING: Cesario Valderrama MD CONSULTS: None. PROCEDURES: 1. Brain CT, no acute intracranial abnormality. 2. Carotid Doppler study, no hemodynamically significant stenosis. 3. Hip x-ray shows no acute abnormality. 4. Brain MRI normal. 5. Echocardiogram report EF estimated at 50% to 55%, severe mitral regurgitation , mild tricuspid regurgitation. PRIMARY DIAGNOSES: 1. Unintentional medication overdose. 2. Orthostasis. SECONDARY DIAGNOSES: 1. Major depressive disorder and generalized anxiety disorder. 2. Chronic pain. 3. Fibromyalgia. 4. History of migraine headache. DISCHARGE MEDICATIONS: 1. Vitamin D3. 2. Depakote 250 mg t.i.d. 3. Cymbalta 120 mg daily. 4. Sumatriptan 25 mg daily. 5. Topiramate 75 mg at bedtime. Discontinued medications: 1. Cymbalta 30 mg at bedtime. The patient had previously been on 150 total daily. 2. Valium 10 mg t.i.d. 3. Prazosin 10 mg at bedtime. HISTORY OF PRESENT ILLNESS/HOSPITAL COURSE: Ms. Kamara is a 58-year-old female with past medical history of bipolar, anxiety, and depression, who presented to the ED with chief complaint of frequent falls and altered mental status. She had recently been admitted to [facility] for suicidal ideation. Stroke workup including CT, CTA, carotid Doppler, MRI, and echocardiogram were all negative. Neuro checks revealed no abnormalities. Vital signs were stable. Labs unremarkable. Trop x1 negative. TSH, B12, and negative. UA negative. Salicylates, Tylenol, and plasma alcohol negative. On medication review, it is noted that she was taking 150 mg of Cymbalta daily. There are known side effects that coincide with her symptoms of unintentional overdose. It was recommended that she decrease to 120 mg daily by discontinuing the 30 mg at bedtime dose. She will likely need to be titrated down to 60 mg as the patient even at the highest recommended dose of 120 mg daily can still have symptoms. She did have a notable systolic blood pressure in the room in the 80s. For this reason, Valium was held until she can be followed up as outpatient. The patient also had complaint of hip pain after fall. Hip x- ray x2 was performed that shows no acute abnormality or fracture. The patient requesting opioids, although opioids are not appropriate in this patient due to reported recent history of attempted overdose. It appears that patient was prescribed a 7-day course of opioids on November 02, 2018. Tylenol was negative in her system at admission. The patient was agreeable after explanation of why opioids were not appropriate due to her altered mental status and agreed upon Toradol for pain relief. For her migraine, she was continued on topiramate and sumatriptan as needed for her symptoms as well as treated with Benadryl and Reglan. DISPOSITION: Stable. DISCHARGE INSTRUCTIONS: 1. Location: Home. 2. Diet: Regular. 3. Activity: No restrictions. 4. Follow up: Follow up with Dr. Martin, PCP, within 3 to 7 days. Job ID: [id number] MTDD
[2018-11-17] MEDS ORDERED: DULoxetine 60 MG CAP PO SCH (09:00)
[2018-11-17 14:25] LABS: Folate,Hemolysate 588.7 ng/mL (Not Estab.); Hematocrit 39.4 % (34.0-46.6); RBC Folate Test Component 1494 ng/mL (>498)
--- NOTE | 2018-11-18 13:13 | EKG ---
Test Reason : DIZZINES Blood Pressure : / mmHG Vent. Rate : 081 BPM Atrial Rate : 081 BPM P-R Int : 166 ms QRS Dur : 094 ms QT Int : 384 ms P-R-T Axes : 023 -11 031 degrees QTc Int : 446 ms Normal sinus rhythm Normal ECG Confirmed by CARMEN PABLO DO ([id number]), photograph editor REBECA WHITFIELD ([id number]) on 11/18/2018 1:13:02 PM Referred By: Confirmed By:CARMEN PABLO DO
== END 2018-11-16 16:54 | disposition home or self-care (01) ==
LOC: ERS 21:07 → ERHOLD 11-16 01:03 → 2SW 11-16 13:18
PROVIDERS: ADMIT Emergency Medicine; ATTEND Emergency Medicine
DX: T43.211A Poisoning by selective serotonin and norepinephrine reuptake inhibitors, accidental (unintentional), initial encounter (principal); I95.1 Orthostatic hypotension; F31.9 Bipolar disorder, unspecified; F41.9 Anxiety disorder, unspecified; M79.7 Fibromyalgia; G43.909 Migraine, unspecified, not intractable, without status migrainosus; G89.4 Chronic pain syndrome; M16.0 Bilateral primary osteoarthritis of hip; E66.9 Obesity, unspecified; Z68.34 Body mass index [BMI] 34.0-34.9, adult; I34.0 Nonrheumatic mitral (valve) insufficiency; I36.1 Nonrheumatic tricuspid (valve) insufficiency; Z90.49 Acquired absence of other specified parts of digestive tract; Z98.84 Bariatric surgery status; Z88.8 Allergy status to other drugs, medicaments and biological substances; Z88.1 Allergy status to other antibiotic agents; Z79.899 Other long term (current) drug therapy; Z98.890 Other specified postprocedural states
CPT/HCPCS: 62270; 70450; 70551; 73502 ×2; 80164; 80307; 82140; 82607; 82747; 82945; 84157; 84484; 84703; 85014; 87070; 87205; 89051; 93005; 93306; 93880; 96361; 96374; 96375; 96376; 97530; 99285; G0378 ×2; 36415; 80053; 84443; 85025; J1885; J2060; Q0162

== ENCOUNTER 2018-11-17 21:44 | Emergency (ER) | payer MEDICARE | END 2018-11-17 22:38 | disposition home or self-care (01) | LOC: ERS 21:44 | DX: R29.6 Repeated falls (principal); F41.9 Anxiety disorder, unspecified; F32.9 Major depressive disorder, single episode, unspecified; Z79.899 Other long term (current) drug therapy ==

== ENCOUNTER 2018-11-24 22:32 | Emergency (ER) | payer MEDICARE | END 2018-11-25 01:30 | disposition home health service (06) | LOC: ERS 22:32 | DX: R42 Dizziness and giddiness (principal); G43.909 Migraine, unspecified, not intractable, without status migrainosus; F41.9 Anxiety disorder, unspecified; F32.9 Major depressive disorder, single episode, unspecified; I95.9 Hypotension, unspecified | CPT/HCPCS: 99284 ==

== ENCOUNTER 2018-12-30 21:27 | Observation (INO) | payer MEDICARE ==
[2018-12-30] MEDS ORDERED: Nitroglycerin 0.4 MG TAB 1 EACH ONE (21:54)
--- NOTE | 2018-12-30 21:55 | RAD ---
FExam: Chest one view HISTORY:Chest pain Comparison: 10/22/2018 FINDINGS: Lungs: No masses or consolidation. Cardiac silhouette: Normal size Pulmonary vessels: Normal Pleural Spaces: Clear Pneumothorax: None Osseous abnormalities: None of acuity. IMPRESSION: No focal consolidation.
[2018-12-30 22:29] LABS: ALT (SGPT) 16 U/L (8-55); AST (SGOT) 17 U/L (5-34); Albumin 4.1 g/dL (3.5-5.0); Alkaline Phosphatase 85 U/L (40-150); Anion Gap 14 mmol/L (10-20); BUN (Urea Nitrogen) 13 mg/dL (9.8-20.1); Bilirubin, Total 0.2 mg/dL (0.2-1.2); Calc. Creatinine Clearance 0 mL/min (70-130); Calcium 9.3 mg/dL (7.8-10.44); Carbon Dioxide 19 mmol/L (22-29); Chloride 109 mmol/L (98-107); Estimated GFR-MDRD 61; Globulin 2.8 g/dL (2.4-3.5); Glucose 131 mg/dL (70-105); Potassium 4.2 mmol/L (3.5-5.1); Protein, Total 6.9 g/dL (6.0-8.3); Sodium 138 mmol/L (136-145)
[2018-12-30] MEDS ORDERED: Acetaminophen 500 MG TAB ONE (22:29)
[2018-12-30 22:34] LABS: Band 2 % (5-11); Hemoglobin 13.1 g/dL (12.0-16.0); Lymphocytes 53 % (21-51); MDiff Complete? YES; Mean Corpuscular HGB CONC 33.2 g/dL (32.0-36.0); Mean Corpuscular Hemoglobin 31.1 pg (27.0-31.0); Mean Corpuscular Volume 93.6 fL (78.0-98.0); Mean Platelet Volume 9.8 fL (7.4-10.4); Monocytes 3 % (0-10); Neutrophil 42 % (42-75); Platelet Morphology Comment PLT clumps seen-ADEQ; RBC Distribution Width 11.8 % (11.5-14.5); Red Blood Cell (RBC) Count 4.21 mill/uL (4.20-5.40); White Blood Cell (WBC) Count 6.4 thou/uL (4.8-10.8)
[2018-12-31 00:07] LABS: Troponin I Less than 0.010 ng/mL (< 0.028)
[2018-12-31] MEDS ORDERED: Lorazepam 1 MG TAB ONE (00:30)
--- NOTE | 2018-12-31 00:41 | PDOC.FPRHP ---
- History of Present Illness Chief Complaint: Chest pain, syncope History of Present Illness: 58 yo F presents for syncopal episode and associated substernal chest pain/ pressure that started around 1800 last night. Pt reports she was slowly getting up off the couch when her vision blacked out and she fell on to the couch. Pressure did not radiate, 8/10, improved to 6/10 with sublingual nitro with subsequent headache. CP worsened by anxiety. Reports she had associated SOB, which is worse with exertion. She reports palpitations. Reports blurry, streaky vision which was worsened by the episode. Reports she vomited 2 hours prior to the episode. She reports she has had previous difficulty with passing out for the past 5 years. She recently was diagnosed with severe mitral valve regurgitation, which is being worked up outpatient by Dr. Izaguirre with a Holter monitor. She has an upcoming appointment with him January 08. She was recently decreased on her citalopram from 180 to 120, as this was thought to be contributing to her hypotensive episodes. She reports she is currently taking 60 mg daily. She also reports dark brown urine, chronic numbness in her left leg (from hip to toes). She reports chronic diarrhea/constipation since her gastric bypass. She reports suicidal ideation (by overdosing), but no intent. She reports a history of multiple overdoses and recent [facility] admission. Denies suicidal intent or self harm. States she has a hotline number, and multiple coping mechanisms. In ED, she was given nitropaste. Vitals stable. EKG stable, CXR negative. Trop negative. Pt was insistent on not being discharged home, as she lives by herself and did not feel comfortable going home. - Allergies/Adverse Reactions Allergies Allergy/AdvReac Type Severity Reaction Status Date / Time prochlorperazine maleate Allergy Unknown Verified 11/16/18 14:08 [From Compazine] quetiapine [From Seroquel] Allergy Unknown Verified 11/16/18 14:08 clindamycin Allergy Verified 11/16/18 14:10 doxycycline Allergy Verified 11/16/18 14:10 zolpidem [From Ambien] Allergy Verified 11/16/18 14:10 - Home Medications Medication Instructions Recorded Confirmed Type Divalproex Sodium ER [Depakote ER] 500 mg PO HS 03/24/18 11/16/18 History SUMAtriptan Succinate [Imitrex] 50 mg PO DAILY PRN MDD 200 mg 03/24/18 11/16/18 History Topiramate 100 mg PO HS 03/24/18 11/16/18 History Cholecalciferol (Vitamin D3) 5,000 unit PO DAILY 03/25/18 12/31/18 History [Vitamin D3] DULoxetine [Cymbalta] 60 mg PO DAILY 03/25/18 11/16/18 History - History PMHx: severe mitral regurge, chronic migraines, sciatica, hx medication overdose , anxiety, MDD with suicidal ideation PSHx: cholecystectomy, gastric bypass, CS, 3 D&Cx, rt shoulder surgery FHx: non contributory Social: denies tobacco/alcohol, drug use - Review of Systems General: denies: fever/chills, weight/appetite/sleep changes Eyes: reports: vision changes. denies: eye pain ENT: denies: nasal congestion, rhinorrhea Respiratory: reports: shortness of breath, exercise intolerance. denies: cough , congestion Cardiovascular: reports: chest pain, palpitation Gastrointestinal: reports: nausea, vomiting, diarrhea, constipation. denies: abdominal pain, GI bleeding Genitourinary: denies: dysuria, other (hematuria) Skin: denies: rashes, lesions Musculoskeletal: denies: pain, tenderness Neurological: reports: numbness, syncope Psychological: reports: anxiety, depression - Vital signs BP: [104/73] HR: [80] RR: [18] Tmax: [98.9] Pox: [95]% on [RA] Wt: [83.5 kg] - Physical Exam Constitutional: NAD, awake, alert and oriented HEENT: normocephalic and atraumatic, PERRLA, EOMI, conjunctiva clear, grossly normal hearing, normal nasal mucosa, MMM, oropharynx clear Neck: supple, trachea midline Chest: other (tender to palpation over lower substernal area) Heart: RRR, normal S1/S2, pulses present, other (systolic 2/6 murmur) Lungs: CTAB, no respiratory distress, good air movement, no rales/rhonchi, no wheezing Abdomen: soft, non-tender, bowel sounds present, no masses/distention Musculoskeletal: normal structure, normal tone Neurological: no focal deficit Skin: no rash/lesions, good turgor, capillary refill <2 seconds Heme/Lymphatic: no unusual bruising or bleeding, no purpura Psychiatric: normal mood and affect, intact recent and remote memory FMR H&P: Results - Labs Result Diagrams: 12/31/18 06:30 12/30/18 22:02 Lab results: WBC 6.4 thou/uL (4.8-10.8) 12/30/18 22:02 Hgb 13.1 g/dL (12.0-16.0) 12/30/18 22:02 Hct 39.4 % (36.0-47.0) 12/30/18 22:02 MCV 93.6 fL (78.0-98.0) 12/30/18 22:02 Plt Count TNP 12/30/18 22:02 Band Neuts % (Manual) 2 % (5-11) L 12/30/18 22:02 Sodium 138 mmol/L (136-145) 12/30/18 22:02 Potassium 4.2 mmol/L (3.5-5.1) 12/30/18 22:02 Chloride 109 mmol/L (98-107) H 12/30/18 22:02 Carbon Dioxide 19 mmol/L (22-29) L 12/30/18 22:02 BUN 13 mg/dL (9.8-20.1) 12/30/18 22:02 Creatinine 0.94 mg/dL (0.6-1.1) 12/30/18 22:02 Glucose 131 mg/dL (70-105) H 12/30/18 22:02 Calcium 9.3 mg/dL (7.8-10.44) 12/30/18 22:02 Total Bilirubin 0.2 mg/dL (0.2-1.2) 12/30/18 22:02 AST 17 U/L (5-34) 12/30/18 22:02 ALT 16 U/L (8-55) 12/30/18 22:02 Alkaline Phosphatase 85 U/L (40-150) 12/30/18 22:02 Serum Total Protein 6.9 g/dL (6.0-8.3) 12/30/18 22:02 Albumin 4.1 g/dL (3.5-5.0) 12/30/18 22:02 - EKG Interpretation EKG: QTc prolonged at 427 ms, NSR - Radiology Interpretation Chest x-ray Status: image reviewed by me, report reviewed by me (no acute cardiopulmonary process) FMR H&P: A/P - Problem List (1) Chronic migraine Status: Acute Code(s): G43.709 - CHRONIC MIGRAINE W/O AURA, NOT INTRACTABLE, W /O STAT MIGR (2) Sciatica Status: Acute Code(s): M54.30 - SCIATICA, UNSPECIFIED SIDE (3) Severe mitral regurgitation Status: Acute Code(s): I34.0 - NONRHEUMATIC MITRAL (VALVE) INSUFFICIENCY (4) Anxiety and depression Status: Chronic Code(s): F41.8 - OTHER SPECIFIED ANXIETY DISORDERS (5) Major depressive disorder Status: Chronic Code(s): F32.9 - MAJOR DEPRESSIVE DISORDER, SINGLE EPISODE, UNSPECIFIED (6) Obesity (BMI 30-39.9) Status: Chronic Code(s): E66.9 - OBESITY, UNSPECIFIED - Plan Atypical chest pain likely 2/2 anxiety vs costochondritis -Worse with exertion, improved with nitro. However, also worsened with anxiety, and CP is reproducible. -currently 6/10 chest pressure. EKG and CXR stable. Trop negx2. -tylenol PRN for CP -Nitro and EKG PRN for chest pain -Admit to tele obs -Pt currently undergoing Holter, planned to follow up with Dr Izaguirre January 08. Syncope - Chronic problem - POTS vs medication reaction vs dehydration vs cardiac vs other - well hydrated on exam - UA pending - Orthostatic BP pending - Pt has holter currently, see above - Consider cardiology consult in AM Concern for UTI vs nephrosis - Pt reports brown urine - UA pending Prolonged QTc -QTc 427 -avoid zofran and other QT prolonging agents Severe mitral regurge -Following with Dr. Izaguirre as above Depression - Suicidal ideations, overdose on pills. Patient denies intent. - Has hotline available to her, reports she has useful coping mechanisms/ strategies - Has an appointment with psychiatrist in January Hx bipolar and [place] - Most likely contributing to her symptoms - Pt appears to be self-titrating her medications, as her reported doses do not match her last clinic visit - Depakote level pending - Pt needs close follow up with PCP Chronic migraines - On topamax, ajovy monthly Diet: HH DVT ppx: lovenox GI ppx: none PCP: Veronica Code status: full Dispo: most likely home tomorrow, monitor overnight FMR H&P: Upper Level - Pertinent history Pt is a 58 y/o F with hx/o [place]/MDD/Bipolar and severe Mitral Regurg presenting initially to ED complaining of chest pain and a syncopal episode yesterday evening. During this episode her vision became blurry, and she eventually blacked out and fell back in to the couch. Described as substernal pressure. 8/ 10 w/o radiation. Worse with anxiety and improved w nitro. Associated SOB, FORBES post nitro administration, and nausea during this time. MR: Has been wearing holter monitor prior to any surgical intervention for valves with Dr Izaguirre. Appt Jan 08. Anxiety/Depression: Does state her anxiety has been worse lately as she has decreased her Celexa dose to 60mg daily. Has had occasional thoughts of suicide , but not currently. States Dr Izaguirre has weaned off of several medications to hopefully improve MR. States Dr Martin's team has decreased her psych medications, although there is no records of these adjustments in our clinic chart which was reviewed. Currently in ED feeling "OK" other than tired. Chest pain resolved. - Pertinent findings GEN: NAD CARDIO: S3 noted, RRR LUNGS> CTAB, no wheezing EXT: No LE edema, MAEW NEURO: No focal defecits PSYCH: Judgement abnormal, No SI/HI or intent, thoughts tangential - Plan Date/Time: 12/31/18 0041 IBang, have evaluated this patient and agree with findings/plan as outlined by customer experience intern resident. Pertinent changes/additions are listed here. # Atypical Chest Pain: Now resolved. Uncertain etiology, however doubtful. Initial troponin neg, will trend. No EKG changes. Most likely anxiety is the provoking factor. #Syncopal Episode: Reported yesterday. Check orthostatics, but VS have been stable. If syncope did occur, suspect cardiac in origin as she has documented severe MR. Will consider cardiology consult in AM. Possibly mildly dehydrated. IVF PRN. # Hx/o Bipolar and [place]: I do believe her psychiatric illness to greatly affect her reported history and I consider the possibility her history is not reliable. her psychiatrist "left" and she does not have an appointment until the end of January with another Psychiatrist. Unsure which medications she is actually taking. Reportedly taking Cymbalta 60mg, and Depakote. Clinic records do not show any adjustments. Will check depakote level and continue SSRI. Will need close f/u outpatient. # Mitral Regurg: Pt requests handouts in AM. I did explain the disease. Consider cardiology referral , however I do not believe it to be necessary at this point. Addendum - Attending - Attending Attestation Date/Time: 12/31/18 [id number] I personally evaluated the patient and discussed the management with Dr. Pérez. I agree with the History, Examination, Assessment and Plan documented above with any addition or exceptions noted below. The patient presented with substernal chest pain and a "brown out." She states she didn't fully lose consciousness which she calls a brown out. She is currently wearing a monitor for Dr. Izaguirre.. The patient's chest pain was slightly relieved with nitroglycerin but she states it caused a bad headache. Pt admits to being anxious and notes her chest pain is worse with inspiration and expiration. Pt's cardiac enzymes will be trended. She has f/u already scheduled with cardiology and if enzymes are negative she will likely d/c and f/ u as an outpt.
[2018-12-31] MEDS ORDERED: Acetaminophen 325 MG TAB PO PRN (02:16)
[2018-12-31] MEDS ORDERED: Enoxaparin Sodium 40 MG/0.4 ML SYRINGE SC SCH ×2 (02:16→21:00)
[2018-12-31 03:01] LABS: Troponin I Less than 0.010 ng/mL (< 0.028)
[2018-12-31 06:29] LABS: Troponin I Less than 0.010 ng/mL (< 0.028)
[2018-12-31] MEDS ORDERED: Nitroglycerin 0.4 MG TAB 1 EACH ONE (06:35)
[2018-12-31 06:47] LABS: #Basophils 0.1 thou/uL (0.0-0.2); #Eosinphils 0.1 thou/uL (0.0-0.7); #Lymphocytes 2.9 thou/uL (1.20-3.40); #Monocytes 0.5 thou/uL (0.11-0.59); #Neutrophils 2.4 thou/uL (1.40-6.50); %Basophils 1.1 % (0.0-1.0); %Eosinophils 1.1 % (0.0-10.0); %Lymphocytes 48.5 % (21.0-51.0); %Monocytes 8.5 % (0.0-10.0); %Neutrophils 40.7 % (42.0-75.0); Hemoglobin 13.7 g/dL (12.0-16.0); Mean Corpuscular HGB CONC 33.3 g/dL (32.0-36.0); Mean Corpuscular Hemoglobin 31.5 pg (27.0-31.0); Mean Corpuscular Volume 94.5 fL (78.0-98.0); Platelet Count 195 thou/uL (130-400); RBC Distribution Width 11.8 % (11.5-14.5); Red Blood Cell (RBC) Count 4.34 mill/uL (4.20-5.40)
[2018-12-31] MEDS ORDERED: Lorazepam 2 MG/ML VIAL SLOW IVP SCH (07:00)
[2018-12-31] MEDS ORDERED: Ketorolac Tromethamine 30 MG/ML VIAL IVP SCH (07:00)
--- NOTE | 2018-12-31 07:16 | PDOC.EVN ---
Event Note - Event Note Event Note: At around 0530, Pt complains of increased CP, radiating to back. Pt reports pain is nagging, 6-7/10. Repeat EKG shows slightly prolonged QT, otherwise no changes. Repeat trop negative. On physical exam, chest pain is reproducible. Heart: RRR, 1/6 systolic murmur. Atypical CP, likely costochondritis -1x dose 30 mg IV toradol Anxiety -1x dose 0.5 mg ativan
[2018-12-31] MEDS ORDERED: DULoxetine 60 MG CAP PO SCH (09:00)
[2018-12-31] MEDS ORDERED: Acetaminophen 325 MG TAB ONE (09:17)
--- NOTE | 2019-01-01 06:54 | DIS ---
DATE OF ADMISSION: 12/31/2018 DATE OF DISCHARGE: 12/31/2018 ADMITTING ATTENDING: Ruth Ann Jacobsen MD DISCHARGE ATTENDING: Ruth Ann Jacobsen MD. RESIDENT: Hernando Pagan DO CONSULTS: None. PROCEDURES: None. IMAGING DATA: Chest x-ray significant for no focal consolidation or acute abnormality. DISCHARGE MEDICATIONS: 1. Topiramate 100 mg p.o. at bedtime. 2. Imitrex 50 mg p.o. daily. 3. Depakote 500 mg p.o. at bedtime. 4. Vitamin D3 5000 units p.o. daily. 5. Cymbalta 60 mg p.o. daily. DISCONTINUED MEDICATIONS: None. PRIMARY DIAGNOSIS: Musculoskeletal chest pain. SECONDARY DIAGNOSES: 1. Syncope, chronic. 2. Mitral regurgitation. 3. Depression. 4. History of bipolar and generalized anxiety disorder. 5. Chronic migraines. 6. Drug-seeking behavior. HISTORY OF PRESENT ILLNESS AND: This is a 58-year-old female who presents for syncopal episode associated with substernal chest pain/pressure that started around 1800 on the night prior to admission. She says she was slowly getting up off the couch and blacked out and fell back to the couch. These syncopal type episodes are reported as going on for quite some time per her and she sees Dr. Izaguirre outpatient and is currently being monitored via Holter set up in his office for syncope. She reports she has never had chest pain at this time. This chest pain is reproducible on palpation, centered in the chest, nonradiating type pain. Her vital signs were stable. Her troponins were negative. EKG was within normal limits. Chest x-ray was normal. Pain was determined to not be cardiac in nature and did not require further imaging at this time. Warranted outpatient followup as scheduled with Dr. Izaguirre. During hospitalization, she did report that nothing that we were giving her made it better, " giving herself a big dose of ibuprofen." When asked if anything has helped with the pain in the past, she reported that Dilaudid has helped with the pain in the past. The patient is tremulous and twitching on exam, but denied drug use. The patient is deemed stable for discharge home after 4 negative troponins. DIET: Heart healthy, low-sodium. ACTIVITY: As tolerated. FOLLOWUP: Follow up with PCP, Dr. Kirit Martin, in the next 3 days and with roll setter, Dr. Izaguirre, on January 07 as scheduled. Job ID: [id number]
== END 2018-12-31 09:30 | disposition home or self-care (01) ==
LOC: ERS 21:27 → ERHOLD 12-31 01:11
PROVIDERS: ADMIT Family Medicine; ATTEND Family Medicine
DX: R07.89 Other chest pain (principal); R55 Syncope and collapse; I34.0 Nonrheumatic mitral (valve) insufficiency; F31.9 Bipolar disorder, unspecified; F41.9 Anxiety disorder, unspecified; R45.851 Suicidal ideations; G43.709 Chronic migraine without aura, not intractable, without status migrainosus; M54.30 Sciatica, unspecified side; I45.81 Long QT syndrome; E66.9 Obesity, unspecified; Z91.5 Personal history of self-harm; Z79.899 Other long term (current) drug therapy; Z88.1 Allergy status to other antibiotic agents; Z88.8 Allergy status to other drugs, medicaments and biological substances
CPT/HCPCS: 71045; 80053; 80164; 84484 ×4; 85025 ×2; 93005; 99285; G0378; 36415

== ENCOUNTER 2019-01-01 22:38 | Emergency (ER) | payer MEDICARE ==
[2019-01-01 23:19] LABS: #Basophils 0.1 thou/uL (0.0-0.2); #Eosinphils 0.1 thou/uL (0.0-0.7); #Lymphocytes 2.7 thou/uL (1.20-3.40); #Monocytes 0.6 thou/uL (0.11-0.59); #Neutrophils 2.6 thou/uL (1.40-6.50); %Basophils 1.1 % (0.0-1.0); %Eosinophils 0.9 % (0.0-10.0); %Lymphocytes 44.4 % (21.0-51.0); %Monocytes 9.4 % (0.0-10.0); %Neutrophils 44.2 % (42.0-75.0); Hemoglobin 12.5 g/dL (12.0-16.0); Mean Corpuscular HGB CONC 34.2 g/dL (32.0-36.0); Mean Corpuscular Hemoglobin 31.5 pg (27.0-31.0); Mean Platelet Volume 8.5 fL (7.4-10.4); Platelet Count 194 thou/uL (130-400); RBC Distribution Width 11.7 % (11.5-14.5); Red Blood Cell (RBC) Count 3.96 mill/uL (4.20-5.40)
[2019-01-01 23:40] LABS: ALT (SGPT) 15 U/L (8-55); AST (SGOT) 14 U/L (5-34); Albumin 4.3 g/dL (3.5-5.0); Alkaline Phosphatase 78 U/L (40-150); Anion Gap 13 mmol/L (10-20); BUN (Urea Nitrogen) 18 mg/dL (9.8-20.1); Bilirubin, Total 0.2 mg/dL (0.2-1.2); CK (CPK) 62 U/L (29-168); Calc. Creatinine Clearance 0 mL/min (70-130); Calcium 9.9 mg/dL (7.8-10.44); Carbon Dioxide 23 mmol/L (22-29); Chloride 108 mmol/L (98-107); Estimated GFR-MDRD 51; Globulin 2.4 g/dL (2.4-3.5); Glucose 65 mg/dL (70-105); Potassium 3.9 mmol/L (3.5-5.1); Protein, Total 6.7 g/dL (6.0-8.3); Sodium 140 mmol/L (136-145)
--- NOTE | 2019-01-01 23:56 | RAD ---
PORTABLE CHEST ONE VIEW: Date: 01-01-19 Time: 11:07 p.m. History: Chest pain. FINDINGS: Comparison is made with exam from 12-30-18. The heart size is normal. No focal areas of consolidation, pneumothoraces or pleural effusions are se en. There is evidence of right rotator cuff repair. IMPRESSION: No acute process. POS: [facility]
== END 2019-01-02 00:59 | disposition home or self-care (01) ==
LOC: ERS 22:38
DX: R07.89 Other chest pain (principal); F41.9 Anxiety disorder, unspecified; F32.9 Major depressive disorder, single episode, unspecified
CPT/HCPCS: 36415; 71045; 80053; 82550; 84484; 85025; 93005

== ENCOUNTER 2019-01-28 05:28 | Emergency (ER) | payer MEDICARE ==
[2019-01-28 06:10] LABS: Bilirubin Negative (Negative); Blood, Urine Negative (Negative); Clarity CLEAR (Clear); Glucose, Urine (Dipstick) Negative (Negative); Leukocyte Negative (Negative); Nitrite Negative (Negative); Protein, Urine (Dipstick) Negative (Neg-Trace); Specific Gravity, Urine 1.011 (1.002-1.036); Urobilinogen 0.2 mg/dL (0.2-1.0)
[2019-01-28] MEDS ORDERED: Lorazepam 1 MG TAB ONE ×2 (06:16→11:00)
[2019-01-28 06:26] LABS: Amphetamine Not Detected (NotDetected); Benzodiazepine Screen Detected (NotDetected); Cocaine Metabolite Screen Not Detected (NotDetected); Medtox Reader # READER 1; Methamphetamine Not Detected (NotDetected); Opiate Screen Not Detected (NotDetected); Phencyclidine (PCP) Not Detected (NotDetected); THC/Cannabinoid Screen Not Detected (NotDetected)
[2019-01-28 06:27] LABS: Barbiturates Screen Not Detected (NotDetected); Medtox Control Line Valid? VALID (VALID); Methadone Not Detected (NotDetected); Oxycodone Screen Not Detected (NotDetected); Tricyclic Screen Not Detected (NotDetected)
[2019-01-28 06:36] LABS: ALT (SGPT) 13 U/L (8-55); AST (SGOT) 16 U/L (5-34); Acetaminophen Less than 6.0 mcg/mL (10.0-30.0); Albumin 4.2 g/dL (3.5-5.0); Alcohol Less than 10 mg/dL (Less than 10); Alkaline Phosphatase 85 U/L (40-150); Anion Gap 13 mmol/L (10-20); BUN (Urea Nitrogen) 11 mg/dL (9.8-20.1); Bilirubin, Total 0.2 mg/dL (0.2-1.2); CK (CPK) 44 U/L (29-168); Calc. Creatinine Clearance 0 mL/min (70-130); Calcium 9.5 mg/dL (7.8-10.44); Carbon Dioxide 20 mmol/L (22-29); Chloride 109 mmol/L (98-107); Estimated GFR-MDRD 65; Globulin 3.1 g/dL (2.4-3.5); Glucose 87 mg/dL (70-105); Potassium 3.8 mmol/L (3.5-5.1); Protein, Total 7.3 g/dL (6.0-8.3); Salicylate Less than 8.0 mg/dL (15.0-30.0); Sodium 138 mmol/L (136-145)
[2019-01-28 06:59] LABS: #Eosinphils 0.1 thou/uL (0.0-0.7); #Lymphocytes 2.3 thou/uL (1.20-3.40); #Monocytes 0.4 thou/uL (0.11-0.59); #Neutrophils 2.6 thou/uL (1.40-6.50); %Basophils 0.6 % (0.0-1.0); %Eosinophils 1.3 % (0.0-10.0); %Lymphocytes 43.5 % (21.0-51.0); %Monocytes 6.7 % (0.0-10.0); %Neutrophils 47.9 % (42.0-75.0); Hemoglobin 13.2 g/dL (12.0-16.0); Mean Corpuscular Hemoglobin 31.4 pg (27.0-31.0); Mean Corpuscular Volume 92.5 fL (78.0-98.0); Mean Platelet Volume 8.6 fL (7.4-10.4); Platelet Count 187 thou/uL (130-400); RBC Distribution Width 11.8 % (11.5-14.5); White Blood Cell (WBC) Count 5.3 thou/uL (4.8-10.8)
[2019-01-28] MEDS ORDERED: hydrOXYzine Pamoate 25 mg Capsule ONE (11:00)
[2019-01-29] MEDS ORDERED: Divalproex Sodium DR 500 MG TAB PO SCH (09:00)
[2019-01-29] MEDS ORDERED: Topiramate 25 MG TAB PO SCH (09:00)
[2019-01-29] MEDS ORDERED: DULoxetine 60 MG CAP PO SCH (09:00)
== END 2019-01-28 14:35 ==
LOC: ERS 05:28
DX: R45.851 Suicidal ideations (principal); I10 Essential (primary) hypertension; G43.909 Migraine, unspecified, not intractable, without status migrainosus; F41.9 Anxiety disorder, unspecified; F32.9 Major depressive disorder, single episode, unspecified; Z79.899 Other long term (current) drug therapy
CPT/HCPCS: 36415; 80053; 80306; 80307; 81003; 82550; 84439; 84443; 85025; 93005; Q0177

== ENCOUNTER 2019-02-09 05:02 | Emergency (ER) | payer MEDICARE ==
[2019-02-09] MEDS ORDERED: Acetaminophen 325 MG TAB ONE (06:03)
--- NOTE | 2019-02-09 07:51 | CT ---
CT CERVICAL SPINE WITHOUT CONTRAST: INDICATION: Fall down stairs with neck pain. FINDINGS: There is an obliquely oriented lucency involving the right lateral aspect of the odontoid tip suspici ous for a nondisplaced fracture. No additional fracture is evident. There is mild multilevel facet osteoarthritic change and disk degenerative disease. No additional acute osseous abnormality is evid ent. The osseous central canal is preserved. Prevertebral soft tissues are normal-appearing. Lung apices are clear. IMPRESSION: Nondisplaced odontoid tip fracture. Findings called to Dr. Gonzalez at 5:27 a.m. on 02/09/2019. CODE CR POS: [facility]
--- NOTE | 2019-02-09 07:54 | CT ---
CT BRAIN WITHOUT CONTRAST: Date: 02/09/19 INDICATION: Fall down a flight of stairs approximately 30 minutes ago with midline upper back pain and pain in th e back of the neck and headache. COMPARISON: Prior exam dated 11/15/18. FINDINGS: No acute infarct, hemorrhage, or hydrocephalus present. Septum pellucidum and third ventricle are mid line. Mastoid air cells and paranasal sinuses are clear. Skull is intact. Visualized extracranial sof t tissues appear within normal limits. IMPRESSION: No acute intracranial abnormality. POS: [facility]
--- NOTE | 2019-02-09 07:58 | CT ---
CT LUMBAR SPINE WITHOUT CONTRAST: Date: 02/09/19 INDICATION: Fall down stairs with back pain. COMPARISON: Prior lumbar spine MRI dated 08/28/18. FINDINGS: There are stable small cysts involving the posterior aspect of the right mid kidney. There are vascul ar calcifications involving the abdominal aorta. Remaining visualized retroperitoneum appears within normal limits. There is diffuse osteopenia. There is mild multilevel disc degenerative facet osteoarthritic change. There is vacuum disc phenomenon at L4-5, likely related to some disc instability. Osseous central can al and osseous neural foraminal appear patent. No acute fracture or subluxation is evident. IMPRESSION: No acute fracture or subluxation demonstrated. POS: [facility]
--- NOTE | 2019-02-09 08:00 | CT ---
CT OF THE THORACIC SPINE WITHOUT CONTRAST: INDICATION: Fall down stairs with back pain. COMPARISON: Prior CTA of the chest dated 05/03/2013. FINDINGS: There is mild concavity involving the superior end plates of T2 and T3 which are likely stable from t he exam in 2012 and likely reflecting some end plate irregularity from disk degenerative disease or S chmorl's nodes. There is mild multilevel disk degenerative disease of the thoracic spine. No defini te acute fracture is evident. The osseous central canal is preserved. The visualized lungs are marcial r. Visualized aspects of the mediastinum are unremarkable-appearing. IMPRESSION: 1. No definite acute fracture or subluxation is evident. 2. Mild concavity involving the superior end plate of T2 and T3 has been stable since 2012 and likel y is degenerative in nature or related to remote trauma. POS: [facility]
== END 2019-02-09 07:10 | disposition home or self-care (01) ==
LOC: ERS 05:02
DX: S12.112A Nondisplaced Type II dens fracture, initial encounter for closed fracture (principal); F41.9 Anxiety disorder, unspecified; F32.9 Major depressive disorder, single episode, unspecified; Z79.899 Other long term (current) drug therapy; W19.XXXA Unspecified fall, initial encounter
CPT/HCPCS: 70450; 72125; 72128; 72131

== ENCOUNTER 2019-02-16 15:18 | Emergency (ER) | payer MEDICARE ==
--- NOTE | 2019-02-16 16:20 | CT ---
CT head noncontrast HISTORY: Headache. COMPARISON: 02/09/2019. FINDINGS: There is no evidence of acute intracranial hemorrhage or infarct. The ventricles appear nor mal in size, shape and position. There is no mass effect or shift of midline structures. Visualized paranasal sinuses remain well aerated. IMPRESSION: No acute intracranial abnormalities are demonstrated.
[2019-02-16] MEDS ORDERED: diphenhydrAMINE 50 MG/ML VIAL ONE (16:32)
[2019-02-16] MEDS ORDERED: Ketorolac Tromethamine 30 MG/ML VIAL ONE (16:32)
[2019-02-16] MEDS ORDERED: Metoclopramide HCl 10 MG TAB ONE (16:34)
== END 2019-02-16 17:10 | disposition home or self-care (01) ==
LOC: ERS 15:18
DX: R51 Headache (principal); I95.9 Hypotension, unspecified; F41.9 Anxiety disorder, unspecified; F32.9 Major depressive disorder, single episode, unspecified; Z79.899 Other long term (current) drug therapy
CPT/HCPCS: 70450; 96374; 96375; J1200; J1885; J8597

== ENCOUNTER 2019-04-19 09:06 | Outpatient (CLI) | payer MEDICARE ==
--- NOTE | 2019-04-19 10:31 | RAD ---
EXAM: 3 views of the cervical spine HISTORY: Odontoid fracture COMPARISON: CT cervical spine 02/09/2019 FINDINGS: AP, lateral, and open mouth odontoid views of the cervical spine shows normal height and al ignment of the vertebral bodies and intervertebral discs without fracture or subluxation. A questionable lucency seen on CT and the odontoid tip is not definitely appreciated on this exam. No d egenerative changes are seen. No prevertebral soft tissue swelling is seen. IMPRESSION: No significant cervical spine abnormality.
== END 2019-04-19 09:07 | disposition home or self-care (01) ==
LOC: TBSIIMAG 09:06
PROVIDERS: ATTEND Neurological Surgery
DX: S12.100A Unspecified displaced fracture of second cervical vertebra, initial encounter for closed fracture (principal)
CPT/HCPCS: 72040

== ENCOUNTER 2019-06-18 00:19 | Emergency (ER) | payer MEDICARE ==
[2019-06-18] MEDS ORDERED: Ketorolac Tromethamine 30 MG/ML VIAL ONE (02:22)
[2019-06-18 06:24] LABS: ALT (SGPT) 16 U/L (8-55); AST (SGOT) 16 U/L (5-34); Albumin 4.2 g/dL (3.5-5.0); Alkaline Phosphatase 82 U/L (40-150); Anion Gap 12 mmol/L (10-20); BUN (Urea Nitrogen) 16 mg/dL (9.8-20.1); Bilirubin, Total 0.2 mg/dL (0.2-1.2); Calc. Creatinine Clearance 0 mL/min (70-130); Calcium 9.1 mg/dL (7.8-10.44); Carbon Dioxide 22 mmol/L (22-29); Chloride 107 mmol/L (98-107); Estimated GFR-MDRD 52; Globulin 2.4 g/dL (2.4-3.5); Glucose 75 mg/dL (70-105); Potassium 4.1 mmol/L (3.5-5.1); Protein, Total 6.6 g/dL (6.0-8.3); Sodium 137 mmol/L (136-145)
[2019-06-18 06:25] LABS: Troponin I Less than 0.010 ng/mL (< 0.028)
[2019-06-18 07:10] LABS: #Eosinphils 0.1 thou/uL (0.0-0.7); #Lymphocytes 2.1 thou/uL (1.20-3.40); #Monocytes 0.5 thou/uL (0.11-0.59); #Neutrophils 2.4 thou/uL (1.40-6.50); %Basophils 0.8 % (0.0-1.0); %Eosinophils 1.1 % (0.0-10.0); %Lymphocytes 41.7 % (21.0-51.0); %Monocytes 9.9 % (0.0-10.0); %Neutrophils 46.4 % (42.0-75.0); Mean Corpuscular HGB CONC 35.2 g/dL (32.0-36.0); Mean Corpuscular Hemoglobin 32.3 pg (27.0-31.0); Mean Corpuscular Volume 91.6 fL (78.0-98.0); Mean Platelet Volume 8.8 fL (7.4-10.4); Platelet Count 163 thou/uL (130-400); RBC Distribution Width 11.3 % (11.5-14.5); Red Blood Cell (RBC) Count 4.03 mill/uL (4.20-5.40); White Blood Cell (WBC) Count 5.1 thou/uL (4.8-10.8)
--- NOTE | 2019-06-18 07:55 | CT ---
PRELIMINARY REPORT/[facility]/EMERGENCY AFTER HOURS PROCEDURE: PROCEDURE INFORMATION: Exam: CT Head Without Contrast Exam date and time: 06/18/2019 1:52 AM Clinical history: 59 years old, female; Injury or trauma; Initial encounter; Abrasion; Not specified; Patient HX: Er 3? fall at home. Reports that she got dizzy and fell. Denies any loc. TECHNIQUE: Imaging protocol: Computed tomography of the head without contrast. COMPARISON: No relevant prior studies available. FINDINGS: Brain: No brain edema. No intracranial hemorrhage. Ventricles: Normal. No ventriculomegaly. Bones/joints: See Mastoid Air Cells Finding. Sinuses: Visualized sinuses are unremarkable. No fluid levels. Mastoid air cells: Partial opacification of the left mastoid air cells. No perceptible mastoid fractu re. No osseous erosion, overlying inflammation, or subperiosteal abscess to indicate mastoiditis. Soft tissues: Unremarkable. IMPRESSION: No acute brain findings. Thank you for allowing us to participate in the care of your patient. Dictated and Authenticated by: Ruben Melendrez MD 06/18/2019 2:02 AM Central Time ([place] & [place]) FINAL REPORT CT BRAIN WITHOUT IV CONTRAST: Minimal motion artifact through the skull base region. No mass or bleed or other acute process. Par tial opacification of the left mastoid. This report is in agreement with the preliminary report. POS: OFF
--- NOTE | 2019-06-18 08:03 | CT ---
PRELIMINARY REPORT/[facility]/EMERGENCY AFTER HOURS PROCEDURE: PROCEDURE INFORMATION: Exam: CT Cervical Spine Without Contrast Exam date and time: 06/18/2019 1:49 AM Clinical history: 59 years old, female; Injury or trauma; Initial encounter; Abrasion; Patient HX: Er 3?fall at home. Reports that she got dizzy and fell. Denies any loc. TECHNIQUE: Imaging protocol: Computed tomography images of the cervical spine without contrast. COMPARISON: No relevant prior studies available. FINDINGS: Vertebrae: No fracture. Discs/Spinal canal/Neural foramina: No spinal stenosis. No neural foraminal narrowing. Soft tissues: Unremarkable. Lungs: Lungs are clear allowing for expiratory phase imaging. IMPRESSION: No fracture. Thank you for allowing us to participate in the care of your patient. Dictated and Authenticated by: Ruben Melendrez MD 06/18/2019 2:01 AM Central Time ([place] & [place]) FINAL REPORT EMERGENCY AFTER HOURS CERVICAL SPINE CT SCAN WITHOUT IV CONTRAST: Date: 06/18/19 Time: 0150 hours FINDINGS/IMPRESSION: No acute fracture or facet dislocation. Generalized cervical spondylosis. Report in agreement with preliminary report given on-call by [facility]. POS: OFF
--- NOTE | 2019-06-18 08:23 | RAD ---
FRONTAL PELVIS: DATE: 06/18/2019. PROVIDED CLINICAL HISTORY: Right hip pain status post injury. FINDINGS: There is no evidence for a fracture or other acute osseous abnormality. If there is persistent clini juan antonio concern, conservative management and followup imaging are advised. IMPRESSION: As above. POS: [facility]
--- NOTE | 2019-06-18 08:26 | RAD ---
2 VIEWS RIGHT HIP: Date: 06/18/19 PROVIDED CLINICAL HISTORY: Right hip pain status post injury. FINDINGS: Comparison with 11/16/18. No evidence for fracture or other acute osseous abnormality. If there is persistent clinical concern, conservative management and follow-up imaging are advised. IMPRESSION: As above. POS: [facility]
--- NOTE | 2019-06-18 08:27 | RAD ---
RIGHT SHOULDER 3 VIEWS: Date: 06/18/19 HISTORY: Fall. COMPARISON: None. FINDINGS: Mild narrowing of subacromial space. Normal acromioclavicular alignment. No acute fracture or malalig nment. IMPRESSION: No acute osseous abnormality. POS: [facility]
== END 2019-06-18 03:10 | disposition home or self-care (01) ==
LOC: ERS 00:19
DX: R55 Syncope and collapse (principal); I95.9 Hypotension, unspecified; F41.9 Anxiety disorder, unspecified; F32.9 Major depressive disorder, single episode, unspecified; Z79.899 Other long term (current) drug therapy
CPT/HCPCS: 70450; 72125; 72170; 80053; 84484; 85025; 93005; 96374; J1885

== ENCOUNTER 2019-06-22 19:06 | Emergency (ER) | payer MEDICARE ==
[2019-06-22 19:50] LABS: Bilirubin Negative (Negative); Blood, Urine Negative (Negative); Clarity Clear (Clear); Glucose, Urine (Dipstick) Normal (Negative); Leukocyte Negative Leu/uL (Negative); Nitrite Negative (Negative); Protein, Urine (Dipstick) Negative (Neg-Trace); Urobilinogen Normal mg/dL (Less than 2)
[2019-06-22] MEDS ORDERED: Ondansetron PF 4 MG/2 ML Vial ONE (20:02)
[2019-06-22] MEDS ORDERED: Morphine 4 MG/ML VIAL ONE (20:02)
[2019-06-22 20:07] LABS: #Basophils 0.1 thou/uL (0.0-0.2); #Lymphocytes 2.1 thou/uL (1.20-3.40); #Monocytes 0.4 thou/uL (0.11-0.59); #Neutrophils 2.5 thou/uL (1.40-6.50); %Basophils 1.2 % (0.0-1.0); %Eosinophils 0.8 % (0.0-10.0); %Lymphocytes 40.5 % (21.0-51.0); %Monocytes 8.2 % (0.0-10.0); %Neutrophils 49.5 % (42.0-75.0); Hemoglobin 13.2 g/dL (12.0-16.0); Mean Corpuscular HGB CONC 35.2 g/dL (32.0-36.0); Mean Corpuscular Hemoglobin 32.5 pg (27.0-31.0); Mean Corpuscular Volume 92.3 fL (78.0-98.0); Mean Platelet Volume 9.1 fL (7.4-10.4); Platelet Count 180 thou/uL (130-400); RBC Distribution Width 11.5 % (11.5-14.5); Red Blood Cell (RBC) Count 4.07 mill/uL (4.20-5.40); White Blood Cell (WBC) Count 5.1 thou/uL (4.8-10.8)
[2019-06-22 20:37] LABS: ALT (SGPT) 21 U/L (8-55); AST (SGOT) 26 U/L (5-34); Albumin 4.4 g/dL (3.5-5.0); Alkaline Phosphatase 80 U/L (40-110); Anion Gap 13 mmol/L (10-20); BUN (Urea Nitrogen) 12 mg/dL (9.8-20.1); Bilirubin, Total 0.3 mg/dL (0.2-1.2); Calc. Creatinine Clearance 0 mL/min (70-130); Calcium 9.6 mg/dL (7.8-10.44); Carbon Dioxide 20 mmol/L (22-29); Chloride 106 mmol/L (98-107); Estimated GFR-MDRD 47; Globulin 3.3 g/dL (2.4-3.5); Glucose 75 mg/dL (70-105); Lipase 45 U/L (8-78); Potassium 3.9 mmol/L (3.5-5.1); Protein, Total 7.7 g/dL (6.0-8.3); Sodium 135 mmol/L (136-145)
--- NOTE | 2019-06-22 20:52 | CT ---
CT Abdomen Pelvis W Con HISTORY: Right lower quadrant abdominal pain. History of gastric bypass. COMPARISON: 05/13/2015 study FINDINGS: The lung bases show gravity dependent atelectasis. The liver and spleen show no focal abnor malities. The pancreas is mildly atrophic. The gallbladder has been removed. Gastric bypass changes are noted. Right and left adrenal glands and right and left kidneys are normal in size. There is no significant periaortic or mesenteric lymphadenopathy. Some minimal dilatation of the proximal small bowel in the region of an anastomotic suture line, this is a chronic appearance. CT of pelvis performed with contrast enhancement: The appendix is normal. There is no evidence of justin nopathy, mass or free fluid. Moderate amount of stool seen throughout the colon. IMPRESSION: 1. Postop gastric bypass. 2. Postop cholecystectomy. 3. Moderate amount of stool throughout the colon. 4. Normal appendix.
== END 2019-06-23 00:17 | disposition home or self-care (01) ==
LOC: ERS 19:06
DX: R10.31 Right lower quadrant pain (principal); G43.909 Migraine, unspecified, not intractable, without status migrainosus; F41.9 Anxiety disorder, unspecified; F32.9 Major depressive disorder, single episode, unspecified; Z79.899 Other long term (current) drug therapy
CPT/HCPCS: 74177; 80053; 81003; 83690; 85025; 96361; 96374; 96375; J2270; J2405

== ENCOUNTER 2019-07-04 15:28 | Outpatient (CLI) | payer MEDICARE ==
--- NOTE | 2019-07-04 15:48 | RAD ---
THREE VIEWS CERVICAL SPINE: HISTORY: C2 fracture. Neck pain. COMPARISON: 04/19/2019. FINDINGS: AP, lateral and open-mouth views of cervical spine are submitted for interpretation. Limited evaluat ion due to radiolucent cervical collar. On the AP and open-mouth projection, no obvious malalignment. On the lateral projection, reported C2 fracture is difficult to assess and appreciate. There is no si gnificant change when compared to the previous radiograph. No prevertebral soft tissues swelling. Correlation made with CT from 06/18/2019 does not identify an acute fracture. IMPRESSION: No obvious radiographic evidence of fracture. Transcribed Date/Time: 07/04/2019 3:58 PM
== END 2019-07-04 15:29 | disposition home or self-care (01) ==
LOC: TBSIIMAG 15:28
PROVIDERS: ATTEND Neurological Surgery
DX: M54.2 Cervicalgia (principal)
CPT/HCPCS: 72040

== ENCOUNTER 2020-04-07 00:12 | Emergency (ER) | payer MEDICARE ==
[2020-04-07] MEDS ORDERED: Acetaminophen 500 MG TAB ONE (00:43)
--- NOTE | 2020-04-07 07:40 | CT ---
PRELIMINARY REPORT/[facility]/EMERGENCY AFTER HOURS PROCEDURE: CT CERVICAL SPINE WO CON History: FELL BACK HIT HEAD, POSSIBLE LOC. PT DENIES BEING ON BLOOD THINNERS. DIZZINESS, MIGRAINES Comparison: CT\SR - CT CERVICAL SPINE WO CON - 06/18/2019 01:49 AM CDT Findings: There is straightening of the usual cervical lordosis. No acute fracture or traumatic subluxation identified. Bilateral facets are well aligned. C1-2 articulation is maintained. No prevertebral soft tissue swelling. Airway is unremarkable. No evidence of pneumothorax. There is fluid in the upper esophagus, which is nonspecific. No acute soft tissue abnormality identified. Multilevel degenerative changes are again seen. No significant canal or foraminal stenosis. Impression: 1. No acute cervical spine fracture or traumatic subluxation. Mild degenerative changes again noted . 2. There is straightening of the usual cervical lordosis. This may be related to patient positioning , however correlate to exclude muscle spasm. 2. Nonspecific fluid in the visualized upper esophagus. ELECTRONICALLY SIGNED BY: Federico Vega DO Apr 07, 2020 1:18:24 AM CDT This report is intended for review by the ordering physician only, in accordance of law. If you recei ve this report in error, please call [facility] at [phone]. FINAL REPORT EMERGENCY AFTER HOURS CT CERVICAL SPINE WITHOUT CONTRAST: FINDINGS/IMPRESSION: I agree with the findings and impression given in the preliminary report per [facility] physici an. No evidence of acute osseous abnormality of the cervical spine. POS: EAA
--- NOTE | 2020-04-07 07:41 | CT ---
PRELIMINARY REPORT/[facility]/EMERGENCY AFTER HOURS PROCEDURE: CT BRAIN WO CON History: FELL BACK HIT HEAD, POSSIBLE LOC. PT DENIES BEING ON BLOOD THINNERS. DIZZINESS, MIGRAINES Comparison: CT\SR - CT BRAIN WO CON - 06/18/2019 01:52 AM CDT Findings: Bilateral mild periventricular hypodensities are nonspecific, most likely on the basis of chronic sma ll vessel ischemia. Woods-white interface preserved throughout. No evidence of sulcal effacement. No intracranial hemorrhage, mass effect or midline shift. No hydrocephalus or extra-axial fluid collection. Calvarium intact. No focal scalp hematoma identified. Vascular calcifications are present. Orbits are unremarkable. No fluid identified in the paranasal sinuses or mastoid air cells. Impression: 1. No acute intracranial abnormality identified. 2. Stable chronic intracranial findings. No change from prior. ELECTRONICALLY SIGNED BY: Federico Vega DO Apr 07, 2020 1:08:18 AM CDT This report is intended for review by the ordering physician only, in accordance of law. If you recei ve this report in error, please call [facility] at [phone]. FINAL REPORT EMERGENCY AFTER HOURS CT BRAIN WITHOUT CONTRAST: FINDINGS/IMPRESSION: I agree with the findings and impression given in the preliminary report per [facility] physici an. No evidence of acute intracranial abnormality. POS: TABITHA
== END 2020-04-07 01:55 | disposition home or self-care (01) ==
LOC: ERS 00:12
DX: S09.90XA Unspecified injury of head, initial encounter (principal); M54.2 Cervicalgia; F41.9 Anxiety disorder, unspecified; F32.9 Major depressive disorder, single episode, unspecified; F43.10 Post-traumatic stress disorder, unspecified; Z79.899 Other long term (current) drug therapy; W22.8XXA Striking against or struck by other objects, initial encounter
CPT/HCPCS: 70450; 72125